=== PATIENT | female | born 1945 | race Caucasian/White ===

== ENCOUNTER → 2019-12-18 09:15 | Outpatient (REF) | payer MEDICARE, SELFPAY ==
--- NOTE | 2019-12-18 09:30 | CA_ITS ---
Transthoracic Echocardiogram Patient (Last, First, Middle): Cecilia Lin D Gender: Female Date of : 1945 Age: 74 Procedure Date: 12/18/2019 Procedure Type: Transthoracic Echocardiogram Location: OP Height: 162.56 cm Weight: 86.18 kg BSA: 1.91 m2 Heart Rate: bpm BP: 126 / 78 mmHg Clinical Project Leader: NIELS Referring MD: Magui QUIGLEY Anodizer: Anil Maya MD Symptoms: R60.0 EDEMA LOWER EXTEMITY Study Quality: Fair ECG Rhythm: Sinus Conclusions: - 1. Normal LV systolic function with pseudonormal filling pattern 2. Mildly dilated left atrium 3. Normal cardiac valvular Doppler 4. Normal RV systolic pressure 5. No pericardial effusion Findings Left Ventricle Normal left ventricular size, thickness, and systolic function. The visually estimated ejection fraction is between 60-65%. Spectral Doppler is indicative of a pseudonormal filling pattern. E/E prime ratio is between 8 and 15 consistent with indeterminate filling pressures. Right Ventricle Mildly increased right ventricular cavity size. There is normal right ventricular systolic function. Atria The left atrium is mildly dilated. There is lipomatous hypertrophy of the interatrial septum. There is no evidence of interatrial shunt. The right atrium is normal in size. Aortic Valve Normal aortic valve structure and function. There is no aortic valve stenosis. There is no aortic valve regurgitation. Mitral Valve Normal mitral valve structure and function. There is trace mitral valve regurgitation. There is no mitral valve stenosis. Pulmonic Valve The pulmonic valve is likely normal. There is trace pulmonic valve regurgitation. Tricuspid Valve Normal tricuspid valve structure. There is trace tricuspid valve regurgitation. The right ventricular systolic pressure is normal. The right ventricular systolic pressure is 25 mmHg. There is no evidence of pulmonary hypertension. Great Vessels All visible segments of the aorta are normal in size. The pulmonary artery was not well visualized. Venous The inferior vena cava is normal in size and collapses greater than 50% with inspiration. Pericardium/Pleural There is no evidence of pericardial effusion. Prior Study Comparison No prior study available for comparison. Measurements 2D Linear Measurements IVSd: 1.06 0.6-0.9/0.6-1.0 cm LVIDd: 4.82 3.9-5.3/4.2-5.9 cm LVIDd Index: 2.52 2.4-3.2/2.2-3.1 cm/m2 LVIDs: 2.87 2.0-3.6 cm LVPWd: 1.06 0.7-1.1 cm Ao Root: 2.60 2.1-3.5 cm LA Diam: 3.60 2.7-3.8/3.0-4.0 cm LAIDs Index: 1.88 1.5-2.3 cm/m2 LV Mass: 231.17 67-162/88-224 g LV Mass Index: 121.03 43-95/49-115 g/m2 LVOT Diam: 2.10 3.0+(-)1.3 cm Mitral Valve MV Pk E: 1.07 MV PK A: 0.87 MV Decel Time: 187.00 E/A: 1.20 E'Lateral: 10.50 E'Medial: 7.06 E/E' Med: 15.20 E/E' Lat: 10.20 PHT: 55.00 MVA PHT: 4.00 Decel [place]: 5.72 Aortic Valve AoV Pk Con: 1.32 AoV Mn Con: 0.90 AoV VTI: 0.34 AoV Pk Grad: 7.00 Aov Mn Grad: 4.00 VICENTE Cont.VTI: 2.38 LVOT LVOT Pk Con: 0.99 LVOT Mn Con: 0.66 LVOT VTI: 0.24 LVOT Pk Grad: 4.00 LVOT Mn Grad: 2.00 LVOT Diam: 2.10 LVOT Area: 3.46 Diastolic Function MV Pk E: 1.07 MV Pk A: 0.87 E/A: 1.20 E'Medial: 7.06 E/E' Med: 15.20 E' Laterial: 10.50 E/E' Lat: 10.20 Tricuspid Valve TR Pk Con: 2.36 TR Pk Grad: 22.00 RA Press: 3.00 RVSP: 25.00 Great Vessels Aorta Ao Root-2D: 2.60 2.0-3.7 cm Ao Asc: 3.10 2.1-3.4 cm Pulmonary Valve PV Pk Con: 0.91 Peak PV Grad: 3.00 Updated in Other Vendor System with Status of Final Anil Maya MD electronically signed on 12/19/2019 1:22:35 PM with status of Final
== END ==
LOC: HO.CARD 09:15
PROVIDERS: PCP Internal Medicine; Visit Provider Physician Assistant
DX: R60.0 Localized edema (principal)
CPT/HCPCS: 93306

== ENCOUNTER 2019-12-20 08:00 | Outpatient (REF) | payer MEDICARE, SELFPAY ==
--- NOTE | 2019-12-20 | US_ITS ---
EXAMINATION: US VENOUS ULTRASOUND WITH DOPPLER LOWER EXTREMITY, BILATERAL CLINICAL INFORMATION: Edema COMPARISON: Venous examination February 2006 TECHNIQUE: Ultrasound of the deep veins is performed from the hip to the calf with compression sonography and color and pulse Doppler assessment. Spectral analysis with color-flow imaging is performed. FINDINGS: RIGHT: There is normal venous compression and respiratory variation and augmented flow. The visualized common femoral vein, superficial femoral vein, profunda femoral vein, popliteal vein, and the trifurcation region shows no evidence of deep venous thrombosis. There is no significant popliteal fossa cyst. LEFT: There is normal venous compression and respiratory variation and augmented flow. The visualized common femoral vein, superficial femoral vein, profunda femoral vein, popliteal vein, and the trifurcation region shows no evidence of deep venous thrombosis. There is no significant popliteal fossa cyst. If the patient's symptoms persist, followup ultrasound in 5 days 7 days might be of value to exclude proximal propagation from a non-visualized calf vein. US/US venous duplex LE BI IMPRESSION: No DVT demonstrated in the right and left lower extremity.
== END 2019-12-20 08:01 | disposition home or self-care (01) ==
LOC: HO.US 08:00
PROVIDERS: PCP Internal Medicine; Visit Provider Physician Assistant
DX: R60.0 Localized edema (principal)
CPT/HCPCS: 93970

== ENCOUNTER 2020-01-22 08:02 | Outpatient (REF) | payer MEDICARE, SELFPAY ==
[2020-01-22 11:13] LABS: MANUAL DIFF FLAG NO
[2020-01-22 11:20] LABS: Basophils Absolute Auto 0.1 X10*3/uL (0.0-0.2); Eosinophils Absolute Auto 0.2 X10*3/uL (0.0-0.4); Eosinophils Percent Auto 3.4 % (0-4); Hematocrit 37.3 % (37-47); Hemoglobin 12.5 g/dl (12.0-16.0); Imm Gran Abs Auto 0.01 X10*3/uL (0.00-0.03); Imm Gran Pct Auto 0.2 % (0.0-0.4); Lymphocytes Absolute Auto 2.3 X10*3/uL (1.2-4.9); Lymphocytes Percent Auto 45.5 % (20-40); Mean Corpuscular HGB Conc 33.5 g/dl (31.0-35.0); Mean Corpuscular Hemoglobin 30.1 pg (27.0-33.0); Mean Corpuscular Volume 89.9 fL (80-98); Mean Platelet Volume 10.7 fL (9.4-12.3); Monocytes Absolute Auto 0.4 X10*3/uL (0.1-1.2); Neutrophils Absolute Auto 2.1 X10*3/uL (2.0-8.3); Neutrophils Percent Auto 41.9 % (45-73); Platelet Count 259 X10*3/uL (160-400); Red Blood Count 4.15 X10*6/uL (4.20-5.50); Red Cell Distribution Width 13.2 % (11.0-16.0)
[2020-01-22 11:44] LABS: Alanine Aminotransferase 14 U/L (0-31); Alkaline Phosphatase 74 U/L (39-117); Anion Gap 10 (12-20); Aspartate Amino Transferase 17 U/L (5-31); Bilirubin Total 0.4 mg/dL (0.0-1.0); Blood Urea Nitrogen 24 mg/dL (9-16); Calcium 8.8 mg/dL (8.4-10.2); Carbon Dioxide 30 mmol/L (22-29); Chloride 106 mmol/L (96-108); Cholesterol 215 mg/dL; Estimated Glomerular Filt Rate > 60; Glucose Fasting 80 mg/dL (60-99); HDL Cholesterol 65 mg/dL; LDL Cholesterol Calculated 127 mg/dl; Potassium 4.4 mmol/l (3.3-5.1); Sodium 142 mmol/L (135-145); Total Protein 6.5 g/dL (6.5-8.0); Triglycerides 118 mg/dL
== END 2020-01-22 08:03 | disposition home or self-care (01) ==
LOC: HO.HMGCLDS 08:02
PROVIDERS: PCP Internal Medicine; Visit Provider Physician Assistant
DX: Z13.6 Encounter for screening for cardiovascular disorders (principal); Z00.00 Encounter for general adult medical examination without abnormal findings
CPT/HCPCS: 36415; 80053; 80061; 85025

== ENCOUNTER → 2020-02-25 10:43 | Outpatient (REF) | payer MEDICARE, SELFPAY ==
--- NOTE | 2020-02-25 10:54 | HM_ITS ---
TEST PERFORMED: Cardiac event monitoring. REQUESTING PHYSICIAN: DANN Izquierdo. ENROLLMENT PERIOD: 02/25/2020 to 03/26/2020. FINDINGS: Underlying rhythm was sinus rhythm. There was no evidence of any tachyarrhythmia or bradyarrhythmia noted during the time. Of note, even though this was a 30-day monitor, the patient actually had this only for about 5 days or so. It was removed because of allergic reaction. CONCLUSION: Unremarkable cardiac event monitor. Originally scheduled for 30 days, but worn only for 5 days due to allergic reaction. Zev Houston MD HS/MODL / [id number] MTDD
== END ==
LOC: HO.CARD 10:43
PROVIDERS: Visit Provider Physician Assistant
DX: R00.2 Palpitations (principal)
CPT/HCPCS: 93270

== ENCOUNTER → 2020-04-16 10:09 | Outpatient (BNVA) | payer MEDICARE, SELFPAY | PROVIDERS: PCP Internal Medicine; Visit Provider Internal Medicine Gastroenterology | DX: K22.10 Ulcer of esophagus without bleeding (principal); Z12.11 Encounter for screening for malignant neoplasm of colon | CPT/HCPCS: Q3014 ==

== ENCOUNTER 2020-05-10 10:30 | Outpatient (REF) | payer MEDICARE, SELFPAY ==
--- NOTE | ~2020-05-10 | MM_ITS ---
EXAMINATION: MM SCREENING DIGITAL BREAST TOMOSYNTHESIS, BILATERAL CLINICAL INFORMATION: Screening. Asymptomatic. The lifetime risk of breast cancer based on the Tyrer-Cuzick Model is 2%. COMPARISON: Mammography: 03/02/2019, 01/20/2018, 12/28/2016, 12/15/2015 TECHNIQUE: Digital breast tomosynthesis is performed in both the craniocaudal and mediolateral oblique views along with computer-aided detection (CAD). Synthesized 2D images are generated from the tomosynthesis. Additional right MLO view is provided. FINDINGS: There are scattered areas of fibroglandular density (ACR BI-RADS breast composition Category b). There are no significant masses, abnormal calcifications, or other abnormalities. There are some chronic stable punctate calcifications possibly dermal overlying nipples and areola. The axilla are unremarkable. There are no significant changes from prior studies. MM/MM tomosynthesis screening BI IMPRESSION: No mammographic evidence of malignancy. ASSESSMENT: BI-RADS 2: Benign RECOMMENDATION: Routine annual mammography screening. This patient's information was entered into a reminder system with a target due date for their next mammogram.
== END 2020-05-10 10:31 | disposition home or self-care (01) ==
LOC: HO.MAMMO 10:30
PROVIDERS: Visit Provider Internal Medicine
DX: Z12.31 Encounter for screening mammogram for malignant neoplasm of breast (principal)
CPT/HCPCS: 77063; 77067

== ENCOUNTER 2021-05-11 11:04 | Outpatient (REF) | payer MEDICARE, SELFPAY ==
--- NOTE | ~2021-05-11 | MM_ITS ---
EXAMINATION: MM SCREENING DIGITAL BREAST TOMOSYNTHESIS, BILATERAL CLINICAL INFORMATION: Screening. Asymptomatic. The lifetime risk of breast cancer based on the Tyrer-Cuzick Model is 2%. COMPARISON: Mammography: 05/10/2020, 03/02/2019, 01/20/2018 TECHNIQUE: Digital breast tomosynthesis is performed in both the craniocaudal and mediolateral oblique views along with computer-aided detection (CAD). Synthesized 2D images are generated from the tomosynthesis. FINDINGS: There are scattered areas of fibroglandular density (ACR BI-RADS breast composition Category b). There are no significant masses, abnormal calcifications, or other abnormalities. Background stromal markings are stable. There are punctate calcifications again seen overlying both nipples similar to prior studies. The axilla are unremarkable. MM/MM tomosynthesis screening BI IMPRESSION: No mammographic evidence of malignancy. ASSESSMENT: BI-RADS 2: Benign RECOMMENDATION: Routine annual mammography screening. This patient's information was entered into a reminder system with a target due date for their next mammogram.
== END 2021-05-11 11:05 | disposition home or self-care (01) ==
LOC: HO.MAMMO 11:04
PROVIDERS: Visit Provider Internal Medicine
DX: Z12.31 Encounter for screening mammogram for malignant neoplasm of breast (principal)
CPT/HCPCS: 77063; 77067

== ENCOUNTER 2021-05-20 10:38 | Outpatient (REF) | payer MEDICARE, SELFPAY ==
[2021-05-20 12:44] LABS: MANUAL DIFF FLAG NO
[2021-05-20 12:47] LABS: Basophils Absolute Auto 0.1 X10*3/uL (0.0-0.2); Basophils Percent Auto 1.1 % (0-2); Eosinophils Absolute Auto 0.2 X10*3/uL (0.0-0.4); Eosinophils Percent Auto 3.5 % (0-4); Hematocrit 38.8 % (37.0-47.0); Hemoglobin 12.7 g/dl (12.0-16.0); Imm Gran Abs Auto 0.01 X10*3/uL (0.00-0.03); Imm Gran Pct Auto 0.2 % (0.0-0.4); Lymphocytes Absolute Auto 1.9 X10*3/uL (1.2-4.9); Lymphocytes Percent Auto 42.3 % (20-40); Mean Corpuscular HGB Conc 32.7 g/dl (31.0-35.0); Mean Corpuscular Hemoglobin 29.3 pg (27.0-33.0); Mean Corpuscular Volume 89.6 fL (80.0-98.0); Mean Platelet Volume 10.5 fL (9.4-12.3); Monocytes Absolute Auto 0.4 X10*3/uL (0.1-1.2); Monocytes Percent Auto 8.4 % (2-11); Neutrophils Percent Auto 44.5 % (45-73); Platelet Count 279 X10*3/uL (160-400); Red Blood Count 4.33 X10*6/uL (4.20-5.50); Red Cell Distribution Width 13.5 % (11.0-16.0); White Blood Count 4.5 X10*3/uL (4.8-10.8)
[2021-05-20 13:09] LABS: Alanine Aminotransferase 18 U/L (0-31); Alkaline Phosphatase 64 U/L (39-117); Anion Gap 13 (12-20); Aspartate Amino Transferase 18 U/L (5-31); Bilirubin Direct < 0.2 mg/dL (0.0-0.5); Bilirubin Total 0.3 mg/dL (0.0-1.0); Blood Urea Nitrogen 19 mg/dL (9-16); C Reactive Protein 0.42 mg/dL (< or = 0.50); Calcium 9.9 mg/dL (8.4-10.2); Carbon Dioxide 24 mmol/L (22-29); Chloride 106 mmol/L (96-108); Estimated Glomerular Filt Rate > 60; Glucose Random 92 mg/dL (60-115); Iron 81 mcg/dL (30-160); Lipase 33 U/L (8-78); Potassium 4.9 mmol/L (3.3-5.1); Sodium 138 mmol/L (135-145); Total Protein 6.5 g/dL (6.5-8.0)
[2021-05-20 13:26] LABS: Erythrocyte Sedimentation Rate 25 MM/HR (0-20); Ferritin 71 ng/mL (10-250)
[2021-05-20 13:39] LABS: Amylase 62 U/L (28-100); Gamma Glutamyl Transpeptidase 18 U/L (7-33); Percent Iron Saturation 24 % (15-50); Total Iron Binding Capacity 344 mcg/dL (228-428); Unsaturated Iron Binding 263 ug/dL
[2021-05-20 13:57] LABS: Estimated Average Glucose 105 mg/dL; Hemoglobin A1c % 5.3 %
== END 2021-05-20 10:39 | disposition home or self-care (01) ==
LOC: HO.MANLDS 10:38
PROVIDERS: PCP Physician Assistant; Visit Provider Physician Assistant
DX: A07.8 Other specified protozoal intestinal diseases (principal)
CPT/HCPCS: 36415; 80053; 82150; 82248; 82728; 82977; 83036; 83540; 83690; 85025; 85652; 86140

== ENCOUNTER → 2021-08-17 12:59 | Outpatient (BNVA) | payer MEDICARE, SELFPAY | PROVIDERS: PCP Physician Assistant; Referring Provider Physician Assistant; Visit Provider Physician Assistant | DX: K21.9 Gastro-esophageal reflux disease without esophagitis (principal); Z79.899 Other long term (current) drug therapy | CPT/HCPCS: 99212 ==

== ENCOUNTER → 2021-09-11 12:49 | Outpatient (REF) | payer MEDICARE, SELFPAY ==
--- NOTE | 2021-09-11 13:00 | CA_ITS ---
Transthoracic Echocardiogram Patient (Last, First, Middle): Cecilia Lin D Gender: Female Date of : 1945 Age: 76 Procedure Date: 09/11/2021 Procedure Type: Transthoracic Echocardiogram Location: OP Height: 160.02 cm Weight: 88.45 kg BSA: 1.91 m2 Heart Rate: bpm BP: 126 / 78 mmHg [employer]: TO Referring MD: Magui QUIGLEY Symptoms: EDEMA LOWER EXTREMITIES Study Quality: Adequate Conclusions: - 1. Normal LV systolic function with pseudonormal filling pattern with elevated left ventricular end-diastolic pressure 2. Mildly dilated left atrium 3. Normal RV systolic pressure 4. Normal cardiac valvular Doppler next 5. No pericardial effusion Findings Left Ventricle Normal left ventricular size, thickness, and systolic function. The visually estimated ejection fraction is between 55-60%. Spectral Doppler is indicative of a pseudonormal filling pattern. Elevated left ventricular end diastolic pressure. E/E prime ratio is between 8 and 15 consistent with indeterminate filling pressures. Right Ventricle Normal right ventricular cavity size and systolic function. Atria The left atrium is likely dilated. There is no evidence of interatrial shunt. The right atrium is normal in size. Aortic Valve Normal aortic valve structure and function. There is no aortic valve stenosis. There is no aortic valve regurgitation. Mitral Valve There is mild anterior and posterior mitral leaflet thickening. There is trace mitral valve regurgitation. There is no mitral valve stenosis. Pulmonic Valve The pulmonic valve is likely normal. Tricuspid Valve Normal tricuspid valve structure. There is mild tricuspid valve regurgitation. The right ventricular systolic pressure is normal. The right ventricular systolic pressure is 28 mmHg. Normal right atrial pressure. There is no evidence of pulmonary hypertension. Great Vessels All visible segments of the aorta are normal in size. The pulmonary artery was not well visualized. Venous The inferior vena cava is normal in size and collapses greater than 50% with inspiration. Pericardium/Pleural There is no evidence of pericardial effusion. Prior Study Comparison No significant change compared to prior study dated: 12/18/2019. Measurements 2D Linear Measurements IVSd: 0.86 0.6-0.9/0.6-1.0 cm LVIDd: 4.37 3.9-5.3/4.2-5.9 cm LVIDd Index: 2.29 2.4-3.2/2.2-3.1 cm/m2 LVIDs: 3.08 2.0-3.6 cm LVPWd: 0.90 0.7-1.1 cm LA Diam: 3.30 2.7-3.8/3.0-4.0 cm LAIDs Index: 1.73 1.5-2.3 cm/m2 LV Mass: 153.00 67-162/88-224 g LV Mass Index: 80.11 43-95/49-115 g/m2 LVOT Diam: 2.00 3.0+(-)1.3 cm 2D Systolic Function EF 4C: 55.00 >55% EF 2C: 57.30 >55% EF BiP: 55.80 >55% Mitral Valve MV Pk E: 0.89 MV PK A: 0.78 MV Decel Time: 205.00 E/A: 1.10 E'Lateral: 12.10 E'Medial: 5.44 E/E' Med: 16.40 E/E' Lat: 7.40 PHT: 60.00 MVA PHT: 3.67 Decel [place]: 4.36 Aortic Valve AoV Pk Con: 1.15 AoV Mn Con: 0.76 AoV VTI: 0.26 AoV Pk Grad: 5.00 Aov Mn Grad: 3.00 VICENTE Cont.VTI: 2.55 LVOT LVOT Pk Con: 0.87 LVOT Mn Con: 0.56 LVOT VTI: 0.21 LVOT Pk Grad: 3.00 LVOT Mn Grad: 1.00 LVOT Diam: 2.00 LVOT Area: 3.14 Diastolic Function MV Pk E: 0.89 MV Pk A: 0.78 E/A: 1.10 E'Medial: 5.44 E/E' Med: 16.40 E' Laterial: 12.10 E/E' Lat: 7.40 Right Ventricle TAPSE (mm): 23.60 TVS' Con: 9.36 Tricuspid Valve TR Pk Con: 2.51 TR Pk Grad: 25.00 RA Press: 3.00 RVSP: 28.00 Great Vessels Aorta Sinus of Valsalva: 2.93 2.0-3.[address] [place]: 2.08 1.7-3.4 cm Ao Asc: 3.00 2.1-3.4 cm Ao Arch: 2.60 Updated in Other Vendor System with Status of Final Anil Maya MD electronically signed on 09/12/2021 12:56:26 PM with status of Final
== END ==
LOC: HO.CARD 12:49
PROVIDERS: PCP Internal Medicine; Visit Provider Physician Assistant
DX: R60.0 Localized edema (principal)
CPT/HCPCS: 93306

== ENCOUNTER 2021-11-20 10:48 | Outpatient (REF) | payer MEDICARE, SELFPAY ==
[2021-11-20 14:01] LABS: MANUAL DIFF FLAG NO
[2021-11-20 14:04] LABS: Basophils Absolute Auto 0.1 X10*3/uL (0.0-0.2); Eosinophils Absolute Auto 0.2 X10*3/uL (0.0-0.4); Eosinophils Percent Auto 3.4 % (0-4); Hematocrit 35.2 % (37.0-47.0); Hemoglobin 11.9 g/dl (12.0-16.0); Imm Gran Abs Auto 0.02 X10*3/uL (0.00-0.03); Imm Gran Pct Auto 0.3 % (0.0-0.4); Lymphocytes Absolute Auto 2.1 X10*3/uL (1.2-4.9); Lymphocytes Percent Auto 33.1 % (20-40); Mean Corpuscular HGB Conc 33.8 g/dl (31.0-35.0); Mean Corpuscular Hemoglobin 31.1 pg (27.0-33.0); Mean Corpuscular Volume 91.9 fL (80.0-98.0); Mean Platelet Volume 10.4 fL (9.4-12.3); Monocytes Absolute Auto 0.5 X10*3/uL (0.1-1.2); Monocytes Percent Auto 7.5 % (2-11); Neutrophils Absolute Auto 3.4 x10*3/uL (2.0-8.3); Neutrophils Percent Auto 54.7 % (45-73); Platelet Count 297 X10*3/uL (160-400); Red Blood Count 3.83 X10*6/uL (4.20-5.50); Red Cell Distribution Width 13.2 % (11.0-16.0); White Blood Count 6.3 X10*3/uL (4.8-10.8)
[2021-11-20 14:26] LABS: Alanine Aminotransferase 21 U/L (0-31); Albumin Level 4.2 g/dL (3.5-5.0); Alkaline Phosphatase 63 U/L (39-117); Anion Gap 17 (12-20); Aspartate Amino Transferase 23 U/L (5-31); Bilirubin Total 0.2 mg/dL (0.0-1.0); Blood Urea Nitrogen 29 mg/dL (9-16); C Reactive Protein 0.59 mg/dL (< or = 0.50); Calcium 9.6 mg/dL (8.4-10.2); Carbon Dioxide 27 mmol/L (22-29); Chloride 105 mmol/L (96-108); Estimated Glomerular Filt Rate 60; Glucose Random 89 mg/dL (60-115); Potassium 4.9 mmol/L (3.3-5.1); Sodium 144 mmol/L (135-145); Total Protein 6.7 g/dL (6.5-8.0)
[2021-11-20 14:58] LABS: Erythrocyte Sedimentation Rate 36 MM/HR (0-20)
== END 2021-11-20 10:49 | disposition home or self-care (01) ==
LOC: HO.MANLDS 10:48
PROVIDERS: Visit Provider Physician Assistant
DX: K52.9 Noninfective gastroenteritis and colitis, unspecified (principal)
CPT/HCPCS: 36415; 80053; 85025; 85652; 86140

== ENCOUNTER 2021-11-26 11:23 | Outpatient (REF) | payer MEDICARE, SELFPAY ==
[2021-11-26 14:17] LABS: Iron 99 mcg/dL (30-160); Percent Iron Saturation 28 % (15-50); Total Iron Binding Capacity 353 mcg/dL (228-428); Unsaturated Iron Binding 254 ug/dL
[2021-11-26 14:27] LABS: Ferritin 58 ng/mL (10-250)
== END 2021-11-26 11:24 | disposition home or self-care (01) ==
LOC: HO.HMGCLDS 11:23
PROVIDERS: PCP Internal Medicine; Visit Provider Physician Assistant
DX: D64.9 Anemia, unspecified (principal)
CPT/HCPCS: 36415; 82728; 83540

== ENCOUNTER 2022-05-17 10:49 | Outpatient (REF) | payer MEDICARE, SELFPAY ==
--- NOTE | ~2022-05-17 | MM_ITS ---
EXAMINATION: MM SCREENING DIGITAL BREAST TOMOSYNTHESIS, BILATERAL CLINICAL INFORMATION: Screening. Asymptomatic. The lifetime risk of breast cancer based on the Tyrer-Cuzick Model is 2%. COMPARISON: Mammography: 05/11/2021, 05/10/2020, 03/02/2019, 01/20/2018 TECHNIQUE: Digital breast tomosynthesis is performed in both the craniocaudal and mediolateral oblique views along with computer-aided detection (CAD). Synthesized 2D images are generated from the tomosynthesis. FINDINGS: There are scattered areas of fibroglandular density (ACR BI-RADS breast composition Category b). No architectural abnormality or developing density or significant change from prior studies. Again, there are some fine calcifications overlying both nipples as well as some vascular calcifications. The axilla are unremarkable. There are no significant masses, abnormal calcifications, or other abnormalities. MM/MM tomosynthesis screening BI IMPRESSION: No mammographic evidence of malignancy. ASSESSMENT: BI-RADS 2: Benign RECOMMENDATION: Routine annual mammography screening. This patient's information was entered into a reminder system with a target due date for their next mammogram.
== END 2022-05-17 10:50 | disposition home or self-care (01) ==
LOC: HO.MAMMO 10:49
PROVIDERS: Visit Provider Internal Medicine
DX: Z12.31 Encounter for screening mammogram for malignant neoplasm of breast (principal)
CPT/HCPCS: 77063; 77067

== ENCOUNTER 2022-08-26 21:28 | Emergency (ER) | payer MEDICARE, SELFPAY ==
--- NOTE | 2022-08-26 21:45 | ED_ITS ---
HPI - General Adult General Chief complaint: Weakness Stated complaint: NAUSEA SWEATING WEAKNESS SHAKING Time Seen by Provider: 08/26/22 21:42 Source: patient Mode of arrival: EMS Limitations: no limitations History of Present Illness HPI narrative: Patient is stable with mild hypertension on metoprolol 50 mg a day no known cardiac history was apparently doing okay all day doing laundry all of a sudden became weak nauseated and diaphoretic no chest pain no palpitation no shortness of breath patient had enough fluids today patient had similar episode in the past when she over exerted but never had diaphoresis Related Data Home Medications Medication Instructions Recorded Confirmed metoprolol succinate 50 mg 50 mg PO DAILY 04/16/20 04/16/20 tablet,extended release 24 hr sertraline 100 mg tablet (Zoloft) 100 mg PO DAILY 04/16/20 04/16/20 Previous Rx's Medication Instructions Recorded famotidine 20 mg tablet 20 mg PO BID #180 tabs 04/06/22 Allergies Allergy/AdvReac Type Severity Reaction Status Date / Time No Known Allergies Allergy Verified 04/16/20 10:10 Review of Systems Review of Systems: Yes all other systems are reviewed and are negative PMFSH Past Medical History Medical History Anal fissure Anxiety Depression Erosive esophagitis HTN (hypertension) Kidney stone Screening for colon cancer Surgical History H/O colonoscopy H/O hemorrhoidectomy History of esophagogastroduodenoscopy (EGD) Family History Family History Mother HTN (hypertension) A-fib Brother HTN (hypertension) Sister HTN (hypertension) Social History Social History Household Members: Children Alcohol intake: never Smoked in Last 30 Days: No Use of substances other than those prescribed or required for medical reasons: No Advance Directives: No Advance Directives Information Provided: Yes Physical Exam ED Vital Signs: Vital Signs - 24 hr 08/26/22 21:49 08/26/22 21:52 08/26/22 22:13 Temperature 98.4 F 98.4 F 98.2 F Pulse Rate 69 69 68 Respiratory Rate 18 18 18 Blood Pressure 121/51 L 121/51 L 114/56 L Pulse Oximetry 100 100 99 Oxygen Delivery Method Room Air Room Air Room Air 08/27/22 00:15 08/27/22 00:22 08/27/22 00:19 Temperature 97.7 F Pulse Rate 66 68 67 Respiratory Rate 15 Blood Pressure 110/50 L 121/58 L 121/64 Pulse Oximetry 98 Oxygen Delivery Method Room Air 08/27/22 00:20 Temperature Pulse Rate 71 Respiratory Rate Blood Pressure 131/62 Pulse Oximetry Oxygen Delivery Method BMI result Body Mass Index 30.9 Appearance: Alert. Oriented X3. No acute distress. Eyes: No pallor no icterus ENT: Pharynx normal. Oral Mucosa moist Neck: Normal inspection. Neck supple. CVS: Normal heart rate and rhythm. Pulses normal. No murmur/rub or gallop Respiratory: No respiratory distress. Equal air entry bilateral, no wheezing/rales/rhonchi Abdomen: Soft and nontender. Bowel sounds are present, no mass palpable, no CVA tenderness Skin: Skin warm and dry. Normal skin color. Normal skin turgor. Extremities: No lower extremity edema. No calf tenderness Neuro: Oriented X 3. No motor deficit. No sensory deficit.No cerebellar signs , cranial nerves II-XII intact Medications Administered Discontinued Medications Generic Name Dose Route Start Last Admin Trade Name Freq PRN Reason Stop Dose Admin Sodium Chloride 1,000 mls @ 999 mls/hr 08/26/22 22:00 08/26/22 23:30 Ns IV 08/26/22 23:00 Infused .Q1H1M ONE Infusion Medical Decision Making Medical Decision Making [facility] Narrative: Patient likely had near-syncope episode while standing patient was outside watering her plants in heat workup negative for any acute coronary syndrome normal orthostatics patient improved after normal saline feeling much better will discharge home advised to follow-up with PCP Differential Diagnosis ACS/cardiac arrhythmias/vasovagal/heat exhaustion Lab Data [facility] Lab Attestation statement: I reviewed the patient's lab results. 08/26/22 22:29 08/26/22 22:29 Labs: Lab Results 08/26/22 08/26/22 08/26/22 Range/Units 22:29 22:29 22:29 WBC 11.6 H (4.8-10.8) X10*3/uL RBC 4.17 L (4.20-5.50) X10*6/uL Hgb 12.8 (12.0-16.0) g/dl Hct 38.4 (37.0-47.0) % MCV 92.1 (80.0-98.0) fL MCH 30.7 (27.0-33.0) pg MCHC 33.3 (31.0-35.0) g/dl RDW 12.7 (11.0-16.0) % Plt Count 294 (160-400) X10*3/uL MPV 9.9 (9.4-12.3) fL Immature Gran % (Auto) 0.3 (0.0-0.4) % Neut % (Auto) 77.0 H (45-73) % Lymph % (Auto) 14.5 L (20-40) % [place] % (Auto) 6.8 (2-11) % Eos % (Auto) 1.0 (0-4) % Baso % (Auto) 0.4 (0-2) % Lymph # (Auto) 1.7 (1.2-4.9) X10*3/uL [place] # (Auto) 0.8 (0.1-1.2) X10*3/uL Eos # (Auto) 0.1 (0.0-0.4) X10*3/uL Baso # (Auto) 0.1 (0.0-0.2) X10*3/uL Abs Immat Gran (auto) 0.03 (0.00-0.03) X10*3/uL Absolute Neuts (auto) 8.9 H (2.0-8.3) x10*3/uL Absolute Nucleated RBC 0.000 (0.0-0.012) X10*3/uL Nucleated RBC % (auto) 0.0 (0.0-0.2) /100WBC Sodium 139 (135-145) mmol/L Potassium 3.8 D (3.3-5.1) mmol/L Chloride 101 (96-108) mmol/L Carbon Dioxide 24 (22-29) mmol/L Anion Gap 18 (12-20) BUN 25 H (9-16) mg/dL Creatinine 0.89 (0.5-1.4) mg/dL Estim Creat Clear Calc 53.8 Estimated GFR > 60 Random Glucose 128 H (60-115) mg/dL Calcium 9.9 (8.4-10.2) mg/dL Magnesium 2.3 (1.6-2.6) mg/dL Total Bilirubin 0.2 (0.0-1.0) mg/dL AST 31 (5-31) U/L ALT 28 (0-31) U/L Alkaline Phosphatase 94 (39-117) U/L Troponin I High Sens < 2.7 (<3.5-17.0) ng/L Total Protein 7.2 (6.5-8.0) g/dL Albumin 4.1 (3.5-5.0) g/dL Independent Interpretation I performed an independent interpretation of an: EKG Interpretation: Normal sinus rhythm heart rate 66 beats per minute normal interval normal axis no acute ST-T changes no acute ischemia Discharge Plan Discharge Clinical Impression: Vasovagal near syncope, Heat exhaustion Patient Disposition: Home, Self-Care Instructions: Heat Exhaustion (ED), Near Syncope (ED) Additional Instructions: Drink plenty of fluids Likely you had vasovagal attack with heat exhaustion Follow-up with your PCP if symptoms continues or recurs Prescriptions: No Action famotidine 20 mg tablet 20 mg PO BID Qty: 180 0RF metoprolol succinate 50 mg tablet extended release 24 hr 50 mg PO DAILY sertraline [Zoloft] 100 mg tablet 100 mg PO DAILY
[2022-08-26 21:46] VITALS: BP 124/86; PULSE 80; O2SAT 98
[2022-08-26 21:49] VITALS: BP 121/51; PULSE 69; RESP 18; TEMP 36.9; O2SAT 100; BMI 30.9
[2022-08-26 21:52] VITALS: BP 121/51; PULSE 69; RESP 18; TEMP 36.9; O2SAT 100
--- NOTE | 2022-08-26 22:00 | ECG_ITS ---
Test Reason : DIZZY Blood Pressure : / mmHG Vent. Rate : 066 BPM Atrial Rate : 066 BPM P-R Int : 156 ms QRS Dur : 106 ms QT Int : 404 ms P-R-T Axes : 042 009 017 degrees QTc Int : 423 ms Normal sinus rhythm Incomplete right bundle branch block Borderline ECG When compared with ECG of 21-JUL-2009 12:33, No significant change was found Referred By: Cody Pritchett Electronically Signed By:Panfilo Vail
--- NOTE | 2022-08-26 22:05 | MHC.EDTECH ---
PATIENT CAME VIA EMS , EKG TAKEN AND WAS READ BY PROVIDER ,PATIENT WAS HOOKED UP TO PSYCHOLOGICAL AIDE ,VITALS SIGN TAKEN AND PATIENT WAS CHANGE INTO HOSPITAL ATTIRE ,RN AT BEDSIDE PUTTING IN IV AND GETTING BLOOD WORK ,PATIENT SON AT BEDSIDE ,PT IN GREAT SPRITS WATCHING GAME SHOW .
[2022-08-26 22:13] VITALS: BP 114/56; PULSE 68; RESP 18; TEMP 36.8; O2SAT 99
[2022-08-26] MEDS: 0.9 % Sodium Chloride 1,000 ML 999 ML IV (22:28)
[2022-08-26 22:33] LABS: MANUAL DIFF FLAG NO
[2022-08-26 22:40] LABS: Basophils Absolute Auto 0.1 X10*3/uL (0.0-0.2); Basophils Percent Auto 0.4 % (0-2); Eosinophils Absolute Auto 0.1 X10*3/uL (0.0-0.4); Hematocrit 38.4 % (37.0-47.0); Hemoglobin 12.8 g/dl (12.0-16.0); Imm Gran Abs Auto 0.03 X10*3/uL (0.00-0.03); Imm Gran Pct Auto 0.3 % (0.0-0.4); Lymphocytes Absolute Auto 1.7 X10*3/uL (1.2-4.9); Lymphocytes Percent Auto 14.5 % (20-40); Mean Corpuscular HGB Conc 33.3 g/dl (31.0-35.0); Mean Corpuscular Hemoglobin 30.7 pg (27.0-33.0); Mean Corpuscular Volume 92.1 fL (80.0-98.0); Mean Platelet Volume 9.9 fL (9.4-12.3); Monocytes Absolute Auto 0.8 X10*3/uL (0.1-1.2); Monocytes Percent Auto 6.8 % (2-11); Neutrophils Absolute Auto 8.9 x10*3/uL (2.0-8.3); Platelet Count 294 X10*3/uL (160-400); Red Blood Count 4.17 X10*6/uL (4.20-5.50); Red Cell Distribution Width 12.7 % (11.0-16.0); White Blood Count 11.6 X10*3/uL (4.8-10.8)
[2022-08-26 22:52] LABS: Alanine Aminotransferase 28 U/L (0-31); Albumin Level 4.1 g/dL (3.5-5.0); Alkaline Phosphatase 94 U/L (39-117); Anion Gap 18 (12-20); Aspartate Amino Transferase 31 U/L (5-31); Bilirubin Total 0.2 mg/dL (0.0-1.0); Blood Urea Nitrogen 25 mg/dL (9-16); Calcium 9.9 mg/dL (8.4-10.2); Carbon Dioxide 24 mmol/L (22-29); Chloride 101 mmol/L (96-108); Creatinine Clr Calc Pharmacy 53.8; Estimated Glomerular Filt Rate > 60; Glucose Random 128 mg/dL (60-115); Magnesium 2.3 mg/dL (1.6-2.6); Potassium 3.8 mmol/L (3.3-5.1); Sodium 139 mmol/L (135-145); Total Protein 7.2 g/dL (6.5-8.0)
[2022-08-26 23:05] LABS: Troponin-I High Sensitivity < 2.7 ng/L (<3.5-17.0)
[2022-08-27 00:15] VITALS: BP 110/50; PULSE 66
[2022-08-27 00:19] VITALS: BP 121/64; PULSE 67
[2022-08-27 00:20] VITALS: BP 131/62; PULSE 71
[2022-08-27 00:22] VITALS: BP 121/58; PULSE 68; RESP 15; TEMP 36.5; O2SAT 98
== END 2022-08-27 00:36 | disposition home or self-care (01) ==
PROVIDERS: Emergency Provider Internal Medicine
DX: R55 Syncope and collapse (principal); T67.5XXA Heat exhaustion, unspecified, initial encounter; X58.XXXA Exposure to other specified factors, initial encounter; Y93.9 Activity, unspecified; Y92.9 Unspecified place or not applicable; Y99.9 Unspecified external cause status; I10 Essential (primary) hypertension; Z79.899 Other long term (current) drug therapy
CPT/HCPCS: 36415; 80053; 83735; 84484; 85025; 93005; 96360; 99284; 99285

== ENCOUNTER → 2022-08-26 22:00 | Outpatient (BNV) | payer MEDICARE, SELFPAY | PROVIDERS: Emergency Provider Internal Medicine; Visit Provider Internal Medicine Cardiovascular Disease | DX: I45.10 Unspecified right bundle-branch block (principal); R42 Dizziness and giddiness | CPT/HCPCS: 93010 ==

== ENCOUNTER 2023-05-27 11:00 | Outpatient (REF) | payer MEDICARE, SELFPAY | END 2023-05-27 11:01 | disposition home or self-care (01) | LOC: HO.MAMMO 11:00 | PROVIDERS: PCP Internal Medicine; Visit Provider Internal Medicine | DX: Z12.31 Encounter for screening mammogram for malignant neoplasm of breast (principal) | CPT/HCPCS: 77063; 77067 ==

== ENCOUNTER → 2023-05-27 11:00 | Outpatient (BNV) | payer MEDICARE, SELFPAY | PROVIDERS: PCP Internal Medicine; Visit Provider Radiology Diagnostic Radiology | DX: Z12.31 Encounter for screening mammogram for malignant neoplasm of breast (principal) | CPT/HCPCS: 77063; 77067 ==

== ENCOUNTER 2023-06-14 10:59 | Outpatient (REF) | payer MEDICARE, SELFPAY ==
--- NOTE | ~2023-06-14 | MM_ITS ---
EXAMINATION: BONE DENSITOMETRY CLINICAL INDICATION: Age-related osteoporosis without current pathological fracture. COMPARISON: Previous BD dated 09/15/2017 and baseline BD dated 05/22/2009. TECHNIQUE: Using a [employer] DXA System (software version: 13.1) manufactured by [employer], dual-energy x-ray absorptiometry was performed of the lumbar spine and left hip. The images are of good technical quality. Summary results are attached. FINDINGS: LEFT FEMUR, NECK: Current: BMD 0.771 g/cm2, Z-score -0.4, T-score -1.9, osteopenia. Prior: BMD 0.679 g/cm2. Baseline: BMD 0.805 g/cm2. LEFT FEMUR, TOTAL: Current: BMD 0.846 g/cm2, Z-score 0.0, T-score -1.3, osteopenia, 6.3% increase from previous, 7.2% decrease from baseline (<5% change is not significant). Prior: BMD 0.796 g/cm2. Baseline: BMD 0.912 g/cm2. AP SPINE L1-L4: Current: BMD 1.072 g/cm2, Z-score -0.2, T-score -1.1, osteopenia, 1.7% increase from previous, 4.0% increase from baseline (<5% change is not significant). Prior: BMD 1.054 g/cm2. Baseline: BMD 1.031 g/cm2. IDENTIFIED RISK FACTORS: Menopause, parental hip fracture, height loss, history of fracture (adult), low calcium intake, osteoporosis. HISTORY OF FRACTURE: Shoulder. MEDICATIONS: Calcium supplements or multivitamin, vitamin D. MM/XR DEXA axial skeleton IMPRESSION: 1. DIAGNOSIS: Osteopenia based on the lowest T-score value of -1.9 in the femoral neck applying World Health Organization criteria. 2. 10-YEAR FRACTURE RISK PREDICTION, FRAX: Major osteoporotic fracture (clinical spine, forearm, hip or shoulder) 33.2%. Hip fracture 19.3%. 3. Treatment Recommendations: NOF guidelines recommend consideration for treatment in postmenopausal women and men age 50 and older presenting with the following: -A hip or vertebral (clinical or morphometric) fracture. -T-score less than or equal to -2.5 at the femoral neck or spine after appropriate evaluation to exclude secondary causes. -Low bone mass at the hip or spine and a 10-year fracture probability by FRAX of greater than or equal to 3% for hip fracture or greater than or equal to 20% for major osteoporotic fracture based on the [place] adapted WHO algorithm. 4. Other Recommendations: All treatment decisions require clinical judgment and consideration of individual patient factors, including patient preferences, comorbidities, previous drug use, risk factors not captured in the FRAX model (e.g. frailty, falls, vitamin D deficiency, increased bone turnover, interval significant decline in bone density) and possible under or overestimation of fracture risk by FRAX. Additional medical evaluation for secondary cause of low bone mineral density may be appropriate. FUTURE SCAN RECOMMENDATION: People with diagnosed cases of osteoporosis or at high risk for fracture should have regular bone mineral density tests. For patients eligible for Medicare, routine testing is allowed once every 2 years. The testing frequency can be increased to one year for patients who have rapidly progressing disease, those who are receiving or discontinuing medical therapy to restore bone mass, or have additional risk factors.
== END 2023-06-14 11:00 | disposition home or self-care (01) ==
LOC: HO.MAMMO 10:59
PROVIDERS: PCP Internal Medicine; Visit Provider Physician Assistant
DX: M81.0 Age-related osteoporosis without current pathological fracture (principal)
CPT/HCPCS: 77080

== ENCOUNTER 2024-06-22 13:20 | Outpatient (REF) | payer MEDICARE, SELFPAY ==
--- OUTSIDE RECORDS SUMMARY | 2024-06-22 13:23 | XMS_ITS | Continuity of Care Document ---
Author Organization [facility], CHELLE Arsenio Clinical Address [address] [place] [address] Care Team Providers Care Backside Grinder Name Role Phone JUWAN BURNETTE Primary Care Provider Assessment Encounter Date Assessment Date Assessment LastModified by Organization Details LastModified Time 06/21/2024 06/21/2024 History: Patient is a 78-year-old female presents to me for additional evaluation of bilateral knee pain left greater than right. She has had pain for several years. She said cortisone injections of loss effectiveness. She takes Tylenol and ibuprofen for pain. Pain level is 7/10. She reports limitations of activities including difficulty with stairs and getting out of a chair. He is unable to kneel or squat. She does report a limp. PMH/PSH/MEDS/ALL/F MH/SOC HX/ROS are reviewed in detail per my medical intake sheet. Of note: Reflux, hypertension, kidney stones General Exam: Vital signs are as noted below Mental status: Alert and lucid. Normal insight, affect and grooming. 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 No spasticity or clonus noted. Extremities: Calves are soft nontender, skin intact Orthopedic Examination: Right Knee: Slight valgus alignment. Range of motion 5-115. Severe tenderness and crepitus laterally. Mild instability. Mild effusion. Left Knee: Slight valgus alignment. Range of motion 5-115. Severe tenderness and crepitus laterally. Mild instability. Mild effusion. Antalgic gait pattern favoring the left side. Full strength and sensation distally X-rays: Radiographs ordered and obtained today including a standing AP, Leos view, nonweightbearing lateral views, and merchant view. These radiographs demonstrate end-stage osteoarthrits of the left greater than right knee. There is czrg-xj-vuam articulation, subchondral sclerosis, and osteophyte formation. Assessment: End-stage osteoarthritis of the left greater than right knee which has failed greater than 3 months of nonoperative treatment including medication, activity modification, and injections. The patient is in too much discomfort to participate in any meaningful physical therapy. PLAN: The patient was thoroughly counseled today regarding their knee condition, its natural history and the options, both operative and non-operative. The nature of knee replacement surgery, the potential risks, benefits, and complications, the magnitude of the surgery, the intensity of postoperative recovery as well as its elective nature were explained at length today. Although it is impossible to list all of the possible complications of any operation or procedure, I explained that some of the major complications that may arise include the following: Blood loss requiring transfusion, infection (early or late), blood clots, dislocation, pain (persistent or new), scars numbness or tenderness, unequal leg lengths, weakness, stiffness, loss of motion, clicking of implant, calcification, fracture of bone, instability of leg, nerve damage (paralysis or numbness), blood vessel damage, implant loosening, implant breakage, wearing of the implant, need for future surgery, allergic reaction, metal toxicity, medical complications including confusion, heart attack, stroke, or ). Issues regarding lifelong infection and activity precautions were reviewed. The longevity of the implants was discussed. The patient understands the potential need for revision surgery. We discussed performing the surgery in either an inpatient or outpatient setting as well as the pros and cons of both. The patient has elected to proceed in a inpatient setting. The patient will require clearance from a medical doctor prior to surgery. The patient wishes to schedule an elective total knee replacement little left side only in October. Next planned follow-up is at the history and physical. She is scheduled later this month for her final cortisone injections as well. The patient knows I will be happy to meet with them at any time in order to review any additional questions or concerns that they might have. [email or web address] Not available 06/21/2024 17:36:00 Plan of Treatment Reminders Order Date Submit Date Provider Last Modified By Organization Details Last Modified Time Details Appointments RECHECK 2024 10:15A Carlos Ayers PA-C Not available Not available Not available SURGERY @ [facility] [place] 2024 10:30A M Hakeem Youngblood MD Not available Not available Not available Lab None recorded . Referral None recorded . Procedures None recorded . Surgeries None recorded . Imaging XR, knee, 4 or more view - 6 B KNEE 4V [email or web address] [address], [place], [address], 06/21/2024 16:59:05 Medication Orders None recorded . Patient TargetsNo targets recorded. Patient InstructionsNo instructions recorded. Reason for Referral None Reported. Results Created Date Observation Date Name Description Value Unit Range Abnormal Flag Note LastModifiedBy Organization Detail LastModifiedTime 06/22/1906/21/2024 XR, knee, 4 or more view [email or web address] ?Encry pted=s hAaTro YD8dLq bEUv6g %2BXZw aYqtaq 0bqfl% 2Fg9IQ a4ajBk vP9nXo QUaueC m3YtLR FvZlgJ JJ8mAn HZtai3 2g7531 AC0Kla 3yEVKK uKiQtr MwF INTERFACE [facility] [address], [place], [address], 06/21/2024 14:34:36 06/22/19 25 06/21/2024 XR, knee, 4 or more view [email or web address] ?Encry pted=s hAaTro YD8dLq bEUv6g %2BXZw aYqtaq 0bqfl% 2Fg9IQ a4ajBk vP9nXo QUaueC m3YtLR FvZlgJ JJ8mAn HZtai3 3a9149 AC0Kla 3yEVKK uKiQtr MwF INTERFACE [facility] [address], [place], [address], 06/21/2024 14:34:38 Result Notes None recorded. Problems Name Problem SNOMED Code Status Onset Date Resolution Date Notes Provider Name and Address Organization Details Recorded Time No complaint s 768347298 Active Status: 'I'; Not Available [facility] 4 09:17:11 Bilateral osteoarth ritis of knees 297295761739 107 Active 2023 Michelle Santana PA-C [address], [place], [address] , [facility] 4 12:34:32 Pain of knee region 0783119301 Active 20[facility] 5 14:26:50 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 Procedures Surgical History Date Name Laterality Status Provider Name and Address Organization Details Recorded Time 5 Knee Kenalog 40 1cc Injection, Bilateral completed Larry Ayers PA-C [address], [place], [address], [facility] 03/28/2024 07:40:03 4 Knee Kenalog 40 1cc Injection, Bilateral completed Larry Ayers PA-C [address], [place], [address], [facility] 01/02/2024 07:46:11 4 Knee Kenalog 40 1cc Injection, Bilateral completed Michelle Santana PA-C [address], [place], [address], [facility] 10/03/2023 12:34:48 4 Knee Kenalog 40 1cc Injection, Bilateral completed Larry Ayers PA-C [address], [place], [address], [facility] 06/29/2023 22:30:11 Imaging Results None recorded. Procedure Notes None recorded. Medical Equipment None Reported. Allergies No known drug allergies Medications Name Sig Start Date Stop Date Status Note LastModified by Organization Details LastModified Time fluconazole 150 mg tablet TAKE 1 TABLET BY MOUTH EVERY DAY FOR 10 DAYS 09/27 completed Not Available Not Available Not Available metoprolol succinate ER 50 mg tablet,exte nded release 24 hr TAKE 1 TABLET BY MOUTH EVERY DAY active Not Available Not Available No t Available metoprolol succinate ER 50 mg tablet,exte nded release Take 50 mg every day by oral route. 06/21 completed Not Available Not Available Not Available Claritin 10 mg tablet Take 1 tablet every day by oral route. active Not Available Not Available No t Available sertraline 100 mg tablet TAKE 1 TABLET BY MOUTH DAILY active Not Available Not Available No t Available ketorolac 0.5 % eye drops INSTILL 1 DROP LEFT EYE FOUR TIMES DAILY 09/27 completed Not Available Not Available Not Available neomycin-po lymyxin-dex ameth 3.5 mg/mL-10,00 0 unit/mL-0.1 % eye drops 09/27 completed Not Available Not Available Not Available clotrimazol e-betametha sone 1 %-0.05 % topical cream APPLY TOPICALLY TO THE AFFECTED AND SURROUNDI NG AREAS TWICE DAILY IN THE MORNING AND IN THE EVENING FOR 2 WEEKS 09/27 completed Not Available Not Available Not Available furosemide 20 mg tablet TAKE 1 TABLET BY MOUTH EVERY DAY active Not Available Not Available No t Available fluticasone propionate 50 mcg/actuati on nasal spray,suspe nsion SHAKE LIQUID AND USE 1 SPRAY IN EACH NOSTRIL TWICE DAILY NEEDED active Not Available Not Available No t Available neomycin 3.5 mg/g-polymy chris B 10,000 unit/g-dexa meth 0.1 % eye oint APPLY A SMALL AMOUNT TO EYELID MARGIN TWICE DAILY TO BOTH EYES FOR 7-10 DAYS 09/27 completed Not Available Not Available Not Available Pepcid AC Maximum Strength 20 mg tablet 20 mg twice a day by oral route. active Not Available Not Available No t Available Vitals Date Recorded Body height Body mass index (BMI) Body weight Provider Name and Address Organization Details Last Updated DateTime 06/21/2024 160.02 cm 33.5 kg/m2 33899.96 g JOSETTE BERMEO [place] [facility] 06/21/2024 14:34:28 Social History None recorded. Functional Status None recorded. Mental Status None recorded. Family History Nothing Reported. Medical History Condition Response Arthritis Y Hypertension Y Gynecological HistoryNo gynecological history recorded. Obstetrics History GPAL:G 0 P 0 0 0 0 Past Encounters Encounter ID Performer Location Encounter Start Date Encounter Closed Date Diagnosis/Indication Diagnosis SNOMED-CT Code Diagnosis ICD10 Code Diagnosis Note [id number] MD [facility] [address] [facility] [place] [address] 06/21/2024 13:44:44 06/21/2024 17:36:21 Pain of knee region 4867097837 M25.561 M25.562 G89.29 Bilateral osteoarthritis of knees 8188247615 47762 M17.0 Health Concerns Section Related Observation LastModified by Organization Detai ls LastModified Time None Recorded Concern Status LastModified by Organization Details LastModified Time None Recorded Payers Encounter Date Sequence Insurance Name Policy Number Policy Fitzpatrick Covered Member ID Fitzpatrick Member ID Guarantor Name 06/21/2024 1 [employer] MED[employer]ARE ADVANTAGE PLAN (MEDICARE REPLACEMENT HMO) [id number] Cecilia D D Desilets [id number] Cecilia D Desilets OBGyn Episode No OBEpisode recorded.
--- OUTSIDE RECORDS SUMMARY | 2024-06-22 13:23 | XMS_ITS | Data Portability ---
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 Normal insight, affect and grooming. FRONT DESK PERSON: Gross motor coordination is intact. No spasticity [...] left greater than right knee. There is lyhu-jr-cmsi articulation, subchondral sclerosis, and osteophyte formation. Assessment: [...] available Not available Not available SURGERY @ [facility] 2024 10:30A M Hakeem Youngblood MD Not available Not available Not available Lab None recorded . Referral None recorded . Procedures None recorded . Surgeries None recorded . Imaging XR, knee, 4 or more view - 6 B KNEE 4V 2024 025 [email or web address] [facility] Office, [address], [place], [address], 06/21/2024 16:59:05 Medication Orders None recorded . [...] a4ajBk vP9nXo QUaueC m3YtLR FvZlgJ JJ8mAn HZtai3 6q7381 AC0Kla 3yEVKK uKiQtr MwF INTERFACE [facility] [address], [place], [address], 06/21/2024 14:34:36 06/22/1906/21/2024 XR, knee, 4 or more view http:/ [email or web address]:[email or web address] ?Encry pted=s hAaTro YD8dLq bEUv6g %2BXZw aYqtaq 0bqfl% 2Fg9IQ a4ajBk vP9nXo QUaueC m3YtLR FvZlgJ JJ8mAn HZtai3 4q4559 AC0Kla 3yEVKK uKiQtr MwF INTERFACE [facility] [address], [place], [address], 06/21/2024 14:34:38 Result Notes None recorded. Problems Name Problem SNOMED Code Status Onset Date Resolution Date Notes Provider Name and Address Organization Details Recorded Time No complaint s 498814254 Active Status: 'I'; Not Available [facility] 4 09:17:11 Bilateral osteoarth ritis of knees 862414395643 [address] Santana PA-C [address], [place], [address] , [facility] 4 12:34:32 Pain of knee region 0105567228 Active 2024 JOSETTE borrego, [facility] 5 14:26:50 Derangeme nt of posterior horn of medial meniscus of left knee 089341171961 88480 Active 2015 Problem Code: M23.322; Problem Code Type: ICD-10; Status: 'A'; Not Available [facility] 4 11:28:30 Problem Notes None recorded. Procedures Surgical History Date Name Laterality Status Provider Name and Address Organization Details Recorded Time 5 Knee Kenalog 40 1cc Injection, Bilateral completed Larry Ayers PA-C [address], [place], [address], [facility] 03/28/2024 07:40:03 4 Knee Kenalog 40 1cc Injection, Bilateral completed Larry Ayers PA-C [address], [place], [address], [facility] 01/02/2024 07:46:11 4 Knee Kenalog 40 1cc Injection, Bilateral completed Rd Santana PA-C [address], [place], [address], [facility] 10/03/2023 12:34:48 4 Knee Kenalog 40 1cc Injection, Bilateral completed Larry Ayers PA-C [address], [place], [address], [facility] 06/29/2023 22:30:11 Imaging Results Imaging Date Name Status LastModified by Organiz ation Details LastModified Time 06/21/2024 XR, knee, 4 or more view completed [facility] [address], [place], [address], 06/21/2024 14:34:36 06/21/2024 XR, knee, 4 or more view completed [facility]FACE [facility] [address], [place], [address], 06/21/2024 14:34:38 Procedure Notes None recorded. Medical Equipment None [...] and Address Organization Details Last Updated DateTime 06/24/2023 162.56 cm 30.9 kg/m2 [address] VAZQUEZY [facility] 06/24/2023 14:47:18 Date Recorded Body height Body mass index (BMI) Body weight Provider Name and Address Organization Details Last Updated DateTime 10/04/2023 162.56 cm 30.9 kg/m2 42670.63 g ED GARTH [facility] 10/04/2023 11:06:23 Date Recorded Body height Provider Name an d Address Organization Details Last Updated DateTime 01/02/2024 162.56 cm MELVA MILIAN [facility] 01/02/2024 11:05:10 Date Recorded Body height Provider Name an d Address Organization Details Last Updated DateTime 03/28/2024 162.56 cm MELVA MILIAN [facility] 03/28/2024 09:37:52 Date Recorded Body height Body mass index (BMI) Body weight Provider Name and Address Organization Details Last Updated DateTime 06/21/2024 160.02 cm 33.5 kg/m2 27032.96 g JOSETTE BERMEO [facility] 06/21/2024 14:34:28 Social History None recorded. Functional Status None recorded. Mental Status None recorded. Family History Nothing Reported. Medical History Condition Response Arthritis Y Hypertension Y Gynecological HistoryNo gynecological history recorded. Obstetrics History GPAL:G 0 P 0 0 0 0 Past Encounters Encounter ID Performer Location Encounter Start Date Encounter Closed Date Diagnosis/Indication Diagnosis SNOMED-CT Code Diagnosis ICD10 Code Diagnosis Note [id number] BETTINA [address] [place] [address] 06/24/2023 14:24:20 07/18/2023 09:57:34 Osteoarthritis of right knee joint 0746394667 82557 M17.11 Osteoarthr itis of left knee joint 1392166446 [id number] Santana PA-C [facility] [address] [place] [address] 10/04/2023 11:00:53 10/04/2023 11:27:06 Bilateral osteoarthritis of knees 0444786345 60403 M17.0 [id number] Larry Ayers PA-C [facility] [address] [place] [address] 01/02/2024 11:01:52 01/24/2024 15:42:19 Osteoarthritis of right knee joint 6481855491 86151 M17.11 Osteoarthr itis of left knee joint 3656195797 58970 M17.12 [id number] Larry Ayers PA-C [facility] [address] [place] [address] 03/28/2024 09:29:17 04/10/2024 12:53:24 Osteoarthritis of right knee joint 4714991095 77871 M17.11 Osteoarthr itis of left knee joint 6457116454 74707 M17.12 [id number] MD [facility] [address] [place], [place] [address] [address] 06/21/2024 13:44:44 06/21/2024 17:36:21 Pain of knee region 3574835387 M25.561 M25.562 G89.29 Bilateral osteoarthritis of knees 6417198290 60100 M17.0 Health Concerns Section Related Observation LastModified by Organization Detai ls LastModified Time None Recorded Concern Status LastModified by Organization Details LastModified Time None Recorded Advance Directives Directive None Recorded Payers Encounter Date Sequence Insurance Name Policy Number Policy Fitzpatrick Covered Member ID Fitzpatrick Member ID Guarantor Name 06/24/2023 1 [employer] MED[employer]VANTAGE PLAN (MEDICARE REPLACEMENT HMO) [id number] Cecilia Clay Desilets [id number] Cecilia Clay Desilets 10/04/2023 1 [employer] MED[employer]VANTAGE PLAN (MEDICARE REPLACEMENT HMO) [id number] Cecilia D D Desilets [id number] Cecilia D Desilets 01/02/2024 1 [employer] MED[employer]VANTAGE PLAN (MEDICARE REPLACEMENT HMO) [id number] 04 Cecilia D D Desilets [id number] Cecilia D Desilets 03/28/2024 1 [employer] MED[employer]VANTAGE PLAN (MEDICARE REPLACEMENT HMO) [id number] Cecilia D D Desilets [id number] Cecilia D Desilets 06/21/2024 1 [employer] MED[employer]VANTAGE PLAN (MEDICARE REPLACEMENT HMO) [id number] Cecilia D D Desilets [id number] Cecilia D Desilets Notes Date Note Type Note Provider Name and Address Organization Details Recorded Time 06/24/2023 text/html I am seeing the patient today under the supervision of {{Hailey* Chio} } who was available but who did not see the patient. Chief Complaint The patient presents today for recheck of bilateral knee osteoarthritis. Is known to have knee arthritis treated conservatively to this point with {{1 2 3*}} months relief of symptoms. Presents today for recheck secondary to increased knee pain. History of Present Illness ? Allergy list reviewed ? Medication list reviewed Past Medical/Surgical History Reviewed today, otherwise unchanged per intake sheet. Physical Findings General Appearance: ? ? ? Well developed. ? ? ? In no acute distress. Musculoskeletal System: Knee: General/bilateral: ? ? ? No laxity of the knee. Right Knee: ? Medial aspect was tender on palpation. ? ? ? No erythema. ? ? ? No warmth. Left Knee: ? Medial aspect was tender on palpation. ? ? ? No erythema. ? ? ? No warmth. Musculoskeletal Scales: General/bilateral: ? Mild effusion noted. Neurological: ? ? ? Oriented to time, place, and person. Gait And Stance: ? ? ? Normal. Psychiatric: ? ? ? Mood was appropriate to the affect. Left knee 0-120 degrees of flexion with discomfort. Right knee 0-120 degrees of flexion with discomfort. Assessment ? Osteoarthritis of knee -bilateral knees Plan More than 50% of todays visit was spent on direct patient counseling regarding their knee condition and treatment options both operative with knee arthroplasty and non-operative, including oral medications and injection therapy. After discussion, my clinical decision was to go forth with an intra-articular cortisone injection. After explaining risks and benefits, under meticulous aseptic technique, each knee was injected with, 1cc of Kenalog 40mgs and 4 cc of Marcaine 1/4%. They tolerated the procedures well. Post injection precautions reviewed. Follow up with us in 3 months for further discussion of total knee replacement surgery versus continued conservative treatment. Larry Ayers PA-C [address] [facility] [address], [place], [address], [place] [facility] 06/29/2023 22:30:24 10/04/2023 text/html I am seeing the patient today under the supervision of {{Susy morse* Brothers}} who was available but who did not see the patient. HPI:Patient presents today follow-up regarding their {{Left Right Bilatera l*}} knee. Previous injection 06/24/23 gave good relief until recent. Dqis-ugv-xafcjee medications are helping somewhat but not significantly. Pain is constant aching sometimes sharp pain with giving out sensations. Past family, medical, social history and review of systems has been reviewed, updated and is located in the patient? s chart. Examination:The patient is well appearing and in no apparent distress. Alert and oriented x3. Gait is symmetric. Examination of the {{Left Right Bilatera l*}} knees reveal no evidence of any edema, erythema, or warmth. No Deformity. Range of motion of the knee limited with mild discomfort at the end ranges. Mild effusion. Does have some tenderness to palpation about the medial hemijoint line. No tenderness to palpation about the lateral hemijoint line. Patellofemoral crepitus is noted. Negative Emmy? s . Calf is supple and nontender. Neurovascularly intact distally. Impression:{{Left Rig ht Bilateral*}} Knee osteoarthritisPlan:We discussed the role of conservative management including medications, physical therapy, injection and bracing. At this point the patient elected to proceed with repeat bilateral knees cortisone injection. Please see procedure note. They will follow up with us as scheduled. All of their concerns were addressed and they understand and agree with the plan. Speech recognition healthcare applications analyst software was used to create portions of this document. An attempt at proofreading has been made to minimize errors. Please call for corrections. Rd Santana PA-C [address] [facility] [address], [place], [address], [place] [facility] 10/04/2023 11:16:34 01/02/2024 text/html I am seeing the patient today under the supervision of {{Hailey* Chio} } who was available but who did not see the patient. Chief Complaint The patient presents today for recheck of bilateral knee osteoarthritis. Is known to have knee arthritis treated conservatively to this point with {{1 2 3*}} months relief of symptoms. Presents today for recheck secondary to increased knee pain. History of Present Illness ? Allergy list reviewed ? Medication list reviewed Past Medical/Surgical History Reviewed today, otherwise unchanged per intake sheet. Physical Findings General Appearance: ? ? ? Well developed. ? ? ? In no acute distress. Musculoskeletal System: Knee: General/bilateral: ? ? ? No laxity of the knee. Right Knee: ? Medial aspect was tender on palpation. ? ? ? No erythema. ? ? ? No warmth. Left Knee: ? Medial aspect was tender on palpation. ? ? ? No erythema. ? ? ? No warmth. Musculoskeletal Scales: General/bilateral: ? Mild effusion noted. Neurological: ? ? ? Oriented to time, place, and person. Gait And Stance: ? ? ? Normal. Psychiatric: ? ? ? Mood was appropriate to the affect. Left knee 0-120 degrees of flexion with discomfort. Right knee 0-120 degrees of flexion with discomfort. Assessment ? Osteoarthritis of knee -bilateral knees Plan More than 50% of todays visit was spent on direct patient counseling regarding their knee condition and treatment options both operative with knee arthroplasty and non-operative, including oral medications and injection therapy. After discussion, my clinical decision was to go forth with an intra-articular cortisone injection. After explaining risks and benefits, under meticulous aseptic technique, each knee was injected with, 1cc of Kenalog 40mgs and 4 cc of Marcaine 1/4%. They tolerated the procedures well. Post injection precautions reviewed. Follow up with us in 3 months for further discussion of total knee replacement surgery versus continued conservative treatment. Larry Ayers PA-C [address] [facility] [address], [place], [address], [facility] 01/02/2024 12:17:02 03/28/2024 text/html I am seeing the patient today under the supervision of {{Hailey* Chio} } who was available but who did not see the patient. Chief Complaint The patient presents today for recheck of bilateral knee osteoarthritis. Is known to have knee arthritis treated conservatively to this point with {{1 2 3*}} months relief of symptoms. Presents today for recheck secondary to increased knee pain. History of Present Illness ? Allergy list reviewed ? Medication list reviewed Past Medical/Surgical History Reviewed today, otherwise unchanged per intake sheet. Physical Findings General Appearance: ? ? ? Well developed. ? ? ? In no acute distress. Musculoskeletal System: Knee: General/bilateral: ? ? ? No laxity of the knee. Right Knee: ? Medial aspect was tender on palpation. ? ? ? No erythema. ? ? ? No warmth. Left Knee: ? Medial aspect was tender on palpation. ? ? ? No erythema. ? ? ? No warmth. Musculoskeletal Scales: General/bilateral: ? Mild effusion noted. Neurological: ? ? ? Oriented to time, place, and person. Gait And Stance: ? ? ? Normal. Psychiatric: ? ? ? Mood was appropriate to the affect. Left knee 0-120 degrees of flexion with discomfort. Right knee 0-120 degrees of flexion with discomfort. Assessment ? Osteoarthritis of knee -bilateral knees Plan More than 50% of todays visit was spent on direct patient counseling regarding their knee condition and treatment options both operative with knee arthroplasty and non-operative, including oral medications and injection therapy. After discussion, my clinical decision was to go forth with an intra-articular cortisone injection. After explaining risks and benefits, under meticulous aseptic technique, each knee was injected with, 1cc of Kenalog 40mgs and 4 cc of Marcaine 1/4%. They tolerated the procedures well. Post injection precautions reviewed. Follow up with us in 3 months for further discussion of total knee replacement surgery versus continued conservative treatment. Larry Ayers PA-C [address] [facility] [address], [place], [address], [facility] [facility] 03/28/2024 17:03:00 OBGyn Episode No OBEpisode recorded.
--- OUTSIDE RECORDS SUMMARY | 2024-06-22 13:23 | XMS_ITS | Patient Health Record ---
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 [employer] Black Belt Name Role Phone Andrew Gómez MD Primary Care Provider Sage Starr Unavailable [phone] Allergies Allergen (clinical drug ingredient) Drug/Non Drug Allergy documented on EMR Reaction Allergy Type Onset Date Status Seasonale Unknown Drug Allergy Active Reason For Referral No Information Medications Medication SIG (Take, Route, Frequency, Duration) Notes Start Date End Date Status Melatonin 5 MG 1 tablet in the even ing Orally Once a day for 30 day(s) Active Metoprolol Succinate ER 50 MG 1 tablet Orally Once a day for 30 day(s) Active Claritin 10 MG 1 tablet Orally Once a day for 30 day(s) Active PriLOSEC 20mg Not-Ta dar Famotidine 20 MG 1 tablet at bedtime as needed Orally Once a day for 30 day(s) Active Zoloft Not-Taking Flonase Active Furosemide Active Multivitamin Active Sertraline HCl 100 MG 1 tablet Orally On ce a day for 30 day(s) Active Align Active Vitamin D3 Active Ammonium Lactate 12 % 1 application to affected area Externally to feet Twice a day for 30 days Active Calcium Not-Taking Magnesium Active Immunizations Vaccine Route Administration Date Status Comme nts COVID-19 Pfizer BioNTech Vaccine Unknown 08/28/2021 Administered 03/13/20, 04/03, , 11/02/20, Social History Tobacco Use: Social History Observation Description Date Details (start date - stop date) Never Smoker NA - NA Tobacco use other than smoking: Question Answer Notes Are you an other tobacco user? No Tobacco Control (Standard) Question Answer Notes Tobacco use: Nonsmoker Additional Findings: Tobacco non-user Current no nsmoker AUDIT-C (Standard) Question Answer Notes Did you have a drink containing alcohol in the p ast year? No Points 0 Interpretation Negative Problems Problem Type SNOMED Code ICD Code Onset Dates Problem Status W/U Status Risk Notes Problem Atherosclerosis of onondaga arteries of the extremities ([id number]) Atherosclerosis of onondaga artery of both lower extremities, with unspecified presence of clinical manifestation (I70.203) Active confirmed Vital Signs Height 5ft 4in in 01/04/2024 Weight 185 lbs 01/04/2024 BMI 31.75 kg/m2 01/04/2024 Procedures Procedure Date Ordered Date Performed Result Body Sit e 09821-KBEEHMY NAIL, 1-08/31/2023 N/A 27995-Gffv Destruction, 1-14 08/31/2023 N/A 54923-MZAN SKIN LESIONS, OVER 4 08/31/2023 N/A U5315-CWNUSBEQ DYSTROPHIC NAILS ANY # 08/31/2023 N/A 55152-TBBBZGE NAIL, 1-5 01/04/2024 N/A 30019-HCOW SKIN LESIONS, OVER 4 01/04/2024 N/A F1335-HJXLSIOQ DYSTROPHIC NAILS ANY # 01/04/2024 N/A 77702-RIKBRKV NAIL, 1-5 04/04/2024 N/A 96496-QTUN SKIN LESIONS, OVER 4 04/04/2024 N/A F5424-AIZPPHUF DYSTROPHIC NAILS ANY # 04/04/2024 N/A Encounters Encounter Location Date Provider Diagnosis [facility] [address] 08/31/2023 Sage Hedrick Atherosclerosis of onondaga artery of both lower extremities, with unspecified presence of clinical manifestation I70.203 ; Tinea unguium B35.1 ; Pain in right toe(s) M79.674 ; Pain in left toe(s) M79.675 ; Plantar wart B07.0 and Pain in left foot M79.[address] [address] 01/04/2024 Sage Hedrick Atherosclerosis of onondaga artery of both lower extremities, with unspecified presence of clinical manifestation I70.203 ; Tinea unguium B35.1 ; Pain in right toe(s) M79.674 and Pain in left toe(s) M79.675 [facility] [address] [facility] [address] [place] [address] 04/04/2024 Sage Hedrick Atherosclerosis of onondaga artery of both lower extremities, with unspecified presence of clinical manifestation I70.203 ; Tinea unguium B35.1 ; Pain in right toe(s) M79.674 and Pain in left toe(s) M79.675 [facility] [address] [place] [address] 11/29/2023 Sage Hedrick Assessments Encounter Date Diagnosis (ICD Code) Assessment Notes Treatment Notes Treatment Clinical Notes Section Notes 08/31/2023 Tinea unguium (ICD-10 - B35.1) 08/31/2023 Atherosclerosis of onondaga artery of both lower extremities, with unspecified presence of clinical manifestation (ICD-10 - I70.203) 01/04/2024 Tinea unguium (ICD-10 - B35.1) 01/04/2024 Atherosclerosis of onondaga artery of both lower extremities, with unspecified presence of clinical manifestation (ICD-10 - I70.203) 04/04/2024 Tinea unguium (ICD-10 - B35.1) 04/04/2024 Atherosclerosis of onondaga artery of both lower extremities, with unspecified presence of clinical manifestation (ICD-10 - I70.203) 04/04/2024 Pain in right toe(s) (ICD-10 - M79.674) 01/04/2024 Pain in right toe(s) (ICD-10 - M79.674) 08/31/2023 Pain in right toe(s) (ICD-10 - M79.674) 08/31/2023 Pain in left toe(s) (ICD-10 - M79.675) 01/04/2024 Pain in left toe(s) (ICD-10 - M79.675) 04/04/2024 Pain in left toe(s) (ICD-10 - M79.675) 08/31/2023 Plantar wart (ICD-10 - B07.0) 08/31/2023 Pain in left foot (ICD-10 - M79.672) Plan Of Treatment Pending Test Test Name Order Date X ray : Foot, right 3V 03/17/2023 36086-MEMBKXI NAIL, 1-5 05/25/2023 71736-QPBZODE NAIL, 1-5 03/17/2023 90677-PKMUAZD NAIL, -5 08/31/2023 90747-RGEHXSW NAIL, 1-5 01/04/2024 84727-UDBDDEH NAIL, 1-5 10/19/2010 74387-LYHQAKJ NAIL, 1-5 02/15/2011 34649-SJCQOIE NAIL, -5 02/17/2022 37647-MKVPQWP NAIL, -05/19/2022 87864-LHPOELJ NAIL, -08/18/2022 92423-LKMOYNZ NAIL, 1-5 12/09/2022 39963-EBEYSND NAIL, -04/04/2024 00598-Stqr Destruction, -14 12/09/2022 72931-Eoad Destruction, -14 08/18/2022 12774-Usnw Destruction, -14 05/19/2022 41762-Qfrz Destruction, -14 08/31/2023 38609-Stfd Destruction, -14 03/17/2023 16957-Raak Destruction, -05/25/2023 86119-Mlalemte Plate 02/17/2022 29206-PBVE SKIN LESIONS, OVER 4 02/17/19 23 11248-SCLZ SKIN LESIONS, OVER 4 08/19/19 23 67552-USKM SKIN LESIONS, OVER 4 12/10/19 23 40557-AWIM SKIN LESIONS, OVER 4 05/25/19 24 65594-KKHD SKIN LESIONS, OVER 4 03/17/19 24 44783-SGEK SKIN LESIONS, OVER 4 08/31/19 24 70827-HDHH SKIN LESIONS, OVER 4 05/20/19 23 80962-AELD SKIN LESIONS, OVER 4 01/04/20 24 28254-JWMB SKIN LESIONS, OVER 4 04/04/19 25 T2553-QZMNXQKA DYSTROPHIC NAILS ANY # F2276-VGZQZSKM DYSTROPHIC NAILS ANY # A1523-OBZLVVLZ DYSTROPHIC NAILS ANY # B2733-NHMWXRMT DYSTROPHIC NAILS ANY # A4324-SPERKOOV DYSTROPHIC NAILS ANY # I4225-SEEMTYBG DYSTROPHIC NAILS ANY # W3998-TWVMNZUU DYSTROPHIC NAILS ANY # N9327-THHUGHGH DYSTROPHIC NAILS ANY # W1142-UVYFQZAW DYSTROPHIC NAILS ANY # Next Appt Details Provider Name:Sage Vanessa [place] , 07/04/2024 10:00:00 AM, [address] [facility], [address], [place], [address], Insurance Providers Payer Name Payer Address Payer Phone Subscriber Number Group Number Insured Name Patient Relationship to Insured Coverage Start Date Coverage End Date [facility] [address] [place] [address] [id number] DesCecilia pablo Self - patient is the insured Medical (General) History Medical History History ICD Code reflux mumps Arthritis Anxiety back, hip, knee pain Chron's/ Colitis Cataracts chicken pox measles depression chronic sinusitis Surgical History Surgery Date(Month/Year) kidney stones cataract surgery Hospitalization History Reason Date(Month/Year) [facility] [place]- heat exhaustion 09/2022
--- OUTSIDE RECORDS SUMMARY | 2024-06-22 13:23 | XMS_ITS ---
Author Organization [facility] Address [address] [facility] [place] [address] Care Team Providers Care Dairy Management Specialist Name Role Phone Andrew Gómez MD Primary Care Provider Sage Starr Unavailable [phone] Allergies Allergen (clinical drug ingredient) Drug/Non Drug Allergy documented on EMR Reaction Allergy Type Onset Date Status Seasonale Unknown Drug Allergy Active REASON FOR VISIT At Risk Footcare, Painful Nail(s) aggrevated by shoes and causing difficulty standing/walking. Medications Medication SIG (Take, Route, Frequency, Duration) Notes Start Date End Date Status Vitamin D3 Active Calcium Not-Taking PriLOSEC 20mg Not-Ta dar Zoloft Not-Taking Sertraline HCl 100 MG 1 tablet Orally On ce a day for 30 day(s) Active Furosemide Active Magnesium Active Melatonin 5 MG 1 tablet in the even ing Orally Once a day for 30 day(s) Active Metoprolol Succinate ER 50 MG 1 tablet Orally Once a day for 30 day(s) Active Multivitamin Active Align Active Ammonium Lactate 12 % 1 application to affected area Externally to feet Twice a day for 30 days Active Claritin 10 MG 1 tablet Orally Once a day for 30 day(s) Active Famotidine 20 MG 1 tablet at bedtime as needed Orally Once a day for 30 day(s) Active Flonase Active Social History Tobacco Use/Smoking Question Answer Notes Additional Findings: Tobacco Non-User Current no n-smoker Tobacco use other than smoking: Question Answer Notes Are you an other tobacco user? No Vital Signs Height 5ft 4in in 01/04/2024 Weight 185 lbs 01/04/2024 BMI 31.75 kg/m2 01/04/2024 Procedures Procedure Date Ordered Date Performed Result Body Sit e 74733-ZHEYPZD NAIL, 1-5 01/04/2024 N/A 02339-NEQV SKIN LESIONS, OVER 4 01/04/2024 N/A B0009-TTUHOEBM DYSTROPHIC NAILS ANY # 01/04/2024 N/A Encounters Encounter Location Date Provider Diagnosis [facility] [place] [address] [address] 01/04/2024 Sagedeb Hedrick Atherosclerosis of [place] artery of both lower extremities, with unspecified presence of clinical manifestation I70.203 ; Tinea unguium B35.1 ; Pain in right toe(s) M79.674 and Pain in left toe(s) M79.675 Assessments Encounter Date Diagnosis (ICD Code) Assessment Notes Treatment Notes Treatment Clinical Notes Section Notes 01/04/2024 Atherosclerosis of [place] artery of both lower extremities, with unspecified presence of clinical manifestation (ICD-10 - I70.203) 01/04/2024 Tinea unguium (ICD-10 - B35.1) 01/04/2024 Pain in right toe(s) (ICD-10 - M79.674) 01/04/2024 Pain in left toe(s) (ICD-10 - M79.675) Plan Of Treatment Pending Test Test Name Order Date 27040-LJELMFD NAIL, 1-5 01/04/2024 02707-DAFM SKIN LESIONS, OVER 4 01/04/20 24 J1052-XPSOOHMP DYSTROPHIC NAILS ANY # Next Appt Details Follow Up: prn, Reason: Provider Name:Sage Hedrick , 07/04/2024 10:00:00 AM, [address] [facility] [place] [address], [place], [address], Procedure Notes * Category Sub-Category Detail Notes Keratoma Treatment Parring or Cutting o f Benign Hyperkeratotic Lesion(s) (-57) More than 4 Lesions - The Benign hyperkeratotic lesions, ( 8) in total, locations as stated and described in exam, were pared, and/or cut utilizing a sterile 15 blade, tissue nippers, and/or power dremel instrumentation - 14979, Q8 Debride Nails 1-5 Procedure: Performance of this nail treatment by a nonprofessional would put this patients foot and overall health at risk. Therefore, debridement to affected nail(s), as described in exam, was performed extensively to reduce/remove overall nail length, girth, thickness, subungual debris, and necrotic tissue, by manual and/or electrical means through the use of a nail nipper and/or dremel-type precision grinder external, to a more viable healthy nail plate or bed tissue 5 nails or less in number. Silver nitrate was used for any petechial bleeding as necessary. Definitive antifungal treatment options, both pharmaceutical and surgical, have been reviewed and discussed with the patient. The patient solely prefers the use of intermittent/as needed professional debridement services for their nail condition and understands that additional periodic treatments may be required as necessary to maintain effective symptomatic relief - 79420 Nail Reduction Nail Reduction (-27) Trimming o f all dystrophic nails, locations as stated and described in exam, was performed to reduce/remove overall nail length and girth, by manual and electrical means with use of a nail nipper and/or dremel, to more viable healthy nail plate or bed tissue - G0127, Q8 Progress Notes * MAGGIMICHAELCecilia DDOB:[birth year] (78 yo F)Acc No.[id number]:01/04/2024 Progress Note Patient:Cecilia FISH Provider:?Sage Hedrick DPM :1945???Age:78 Y???Sex:Female D ate:01/04/2024 Address:[address] [place], [place] [id number] Pcp:Andrew Gómez MD Subjective: * Chief Complaints: * ???At Risk FootcarePainful N ail(s) aggrevated by shoes and causing difficulty standing/walking. * HPI: ???At Risk footcare:?Pt States Last PCP Visit:?Date?11/03/2023 * ROS:?General/Constitutional:?Nausea?denies.?Vomiting?denies.?Hunger Thirst?denies.?Loss appetite?denies.?Chills?denies.?Fatigue?denies.?Fever?denies.?Night Sweats?denies.?Unexplained weight loss?denies.?Unexplained weight gain?denies.?HEENTM:?Dentures?denies.?Dizziness?denies.?Glasses/contacts?admits.?Retinopathy?de nies.?Blurred/double vision?denies.?TMJ?denies.?Discharge/drainage?denies.?Implants?denies.?Sore throat?denies.?Dental implants?denies.?Hard of hearing ?admits.?Difficulty chewing/swallowing/speaking?denies.?Nose bleeds?denies.?Sore mouth?denies.?Respiratory:?On Oxygen?denies.?Pneumonia/pleurisy?denies.?Bronchitis?denies.?Emphysema?denies.?C oughing?denies.?Cough blood?denies.?Shortness of breath?denies.?Wheezing?denies.?Cardiovascular:?Pacemaker?denies.?MVP?denies.?WPW?denies.?CHF?denies.?Heart attack?denies.?Septal defect?denies.?Rapid beat?denies.?Chest pain ?denies.?Atrial Fib.?denies.?Murmur/Palpitations?denies.?Gastrointestinal:?Hemorrhoids?denies.?Stomach/Abdominal pain?admits.?Dark blood stool?denies.?Irritable bowel ?admits.?Constipation?denies.?Diarrhea?denies.?Hematology:?Swelling?denies.?Clots?denies.?Varicose Veins?denies.?Bruising?denies.?Bleeding problem?denies.?Genitourinary:?Blood urine?denies.?Frequent/Painfu/urination/bladder control?denies.?Kidney stones?denies.?Infection (UTI)?denies.?Nephropathy?denies.?sex trans dis (STD)?denies.?Prostate?denies.?Musculoskeletal:?Hammertoes?admits.?Bunions?denies.?Back Pain?denies.?Muscle Cramps/ Resting?denies.?Muscle cramps / walking?denies.?Generalized aches and pains?admits.?Weakness?denies.?Integ.:?Colon?denies.?Scars?denies.?Corns/calluses?admits.?Ingrown nails?admits.?Painful nails?admits.?Open Sores?denies.?Rashes?denies.?Neurologic:?Difficulty sleeping?denies.?Brain disorder?denies.?Numbness?denies.?Balance trouble?denies.?Confusion?denies.?Fainting/blackouts?denies.?Tingling?denies.?Tr emors?denies.? * Medical History:? * Surgical History:?kidney sto jennifer cataract surgery * Hospitalization/Major Diagno stic Procedure:?[facility]- heat exhaustion 09/2022 * Family History:?Mother: dece ased, diagnosed with Unspecified essential hypertension, Unspecified cerebral artery occlusion with cerebral infarction.?Father: .?Siblings: foot problems.?Spouse: .? * Social History:?Tobacco Use:?Tobacco Use/Smoking?Additional Findings: Tobacco Non-User?Current non-smoker ?Tobacco use other than smoking?Are you an other tobacco user??No * Medications:?TakingAlign Amm onium Lactate 12 % Cream 1 application to affected area Externally to feet Twice a day Claritin 10 MG Tablet 1 tablet Orally Once a day Famotidine 20 MG Tablet 1 tablet at bedtime as needed Orally Once a day Flonase Furosemide Magnesium Melatonin 5 MG Tablet 1 tablet in the evening Orally Once a day Metoprolol Succinate ER 50 MG Tablet Extended Release 24 Hour 1 tablet Orally Once a day Multivitamin Sertraline HCl 100 MG Tablet 1 tablet Orally Once a day Vitamin D3 Taking Align Taking Ammonium Lactate 12 % Cream 1 application to affected area Externally to feet Twice a day Taking Claritin 10 MG Tablet 1 tablet Orally Once a day Taking Famotidine 20 MG Tablet 1 tablet at bedtime as needed Orally Once a day Taking Flonase Taking Furosemide Taking Magnesium Taking Melatonin 5 MG Tablet 1 tablet in the evening Orally Once a day Taking Metoprolol Succinate ER 50 MG Tablet Extended Release 24 Hour 1 tablet Orally Once a day Taking Multivitamin Taking Sertraline HCl 100 MG Tablet 1 tablet Orally Once a day Taking Vitamin D3 Not-Taking/PRNCalcium PriLOSEC 20mg Zoloft Medication List reviewed and reconciled with the patientNot-Taking/PRN Calcium Not-Taking/PRN PriLOSEC 20mg Not- Taking/PRN Zoloft Medication List reviewed and reconciled with the patient * Allergies:?Seasonaleyes[Sivakumar rgies Verified] Objective: * Vitals:?Ht: 5ft 4in, Wt: 185 , BMI: 31.75, Shoe size: 9.5M, Wt-k.91 kg. * Examination: ???Vascular: ?DP PULSES(B):? 1/4, B/L.?PT PULSES(B):? 0/4, B/L.?CAPILLARY FILL TIME:? delayed, all digits, B/L.?TROPHIC CONDITION-TEXTURE/ELASTICITY/TURGOR/HAIR GROWTH(B):? decreased,?with sparse to absent hair growth, B/L.?TEMPERTURE GRADIENT(C):? decreased, cool to cool, proximal to distal, B/L.?PIGMENTATION:? rubrous, B/L.?EDEMA(C):?absent, B/L.?CLAUDICATION(C):?denies, B/L.?REST PAIN:?denies, B/L.?Nails: ?NAILS are:?Elongated, overgrown, dystrophic, lytic, greater than 3mm thick, discolored and friable with crumbly malodorous subungual debris, with pain on palpation, TA, T4, T5, T6, T9, all other nails not described with characteristics as possessing mycosis are elongated, overgrown, and dystrophic.?Dermatologic: ?SKIN FINDINGS:? Skin exam reveals Keratotic lesion(s) located at, Medial plantar, IPJ, TA, Medial plantar, IPJ, T5, SUB MTH (s), 2, B/L , SUB MTH (s), 5, B/L ,Plantar, Heel(s), B/L.?VERRUCA:?NOW, NO FURTHER SIGN of mosaic papule(s) with skin lines now evident and visible, plantar Midfoot , LEFT.? Assessment: * Assessment: 1.?Tinea unguium - B35.1???2 .?Atherosclerosis of [place] artery of both lower extremities, with unspecified presence of clinical manifestation - I70.203 (Primary)???3.?Pain in right toe(s) - M79.674???4.?Pain in left toe(s) - M79.675??? Plan: * Treatment: 2.?Tinea unguium?Procedure: 11790-OUDBTAE NAIL, 1-5 * Procedures:?Debride Nails 1-5:?Procedure:?Performance of this nail treatment by a nonprofessional would put this patients foot and overall health at risk. Therefore, debridement to affected nail(s), as described in exam, was performed extensively to reduce/remove overall nail length, girth, thickness, subungual debris, and necrotic tissue, by manual and/or electrical means through the use of a nail nipper and/or dremel-type precision grinder external, to a more viable healthy nail plate or bed tissue 5 nails or less in number. Silver nitrate was used for any petechial bleeding as necessary. Definitive antifungal treatment options, both pharmaceutical and surgical, have been reviewed and discussed with the patient. The patient solely prefers the use of intermittent/as needed professional debridement services for their nail condition and understands that additional periodic treatments may be required as necessary to maintain effective symptomatic relief - 67110.?Keratoma Treatment:?Parring or Cutting of Benign Hyperkeratotic Lesion(s)?(-57) More than 4 Lesions - The Benign hyperkeratotic lesions, ( 8) in total, locations as stated and described in exam, were pared, and/or cut utilizing a sterile 15 blade, tissue nippers, and/or power dremel instrumentation - 65721, Q8.?Nail Reduction:?Nail Reduction?(-27) Trimming of all dystrophic nails, locations as stated and described in exam, was performed to reduce/remove overall nail length and girth, by manual and electrical means with use of a nail nipper and/or dremel, to more viable healthy nail plate or bed tissue - G0127, Q8.? * Procedure Codes:?G0127 RONNA ING DYSTROPHIC NAILS ANY #, Modifiers: XS , [id number] DEBRIDE NAIL, 1-5, Modifiers: XS 19161 TRIM SKIN LESIONS, OVER 4, Modifiers: XS , Q8 * Follow Up:?prn * Images: * Sign off status: Completed true * Provider:?Sage Hedrick DPM Date:?2023 Generated for Adrianna billy/Aishwarya/Mayda on:?06/22/2024 01:23 PM EDT History and Physical Notes * HPI (History of Present Illness) Category Sub-Category Detail Notes Category Not es At Risk footcare Pt States Last PCP Visit: Date: Examination Category Sub-Category Detail Notes Category Not es Dermatologic SKIN FINDINGS: Skin exam reveal s Keratotic lesion(s) located at, Medial plantar, IPJ, TA, Medial plantar, IPJ, T5, SUB MTH (s), 2, B/L , SUB MTH (s), 5, B/L ,Plantar, Heel(s), B/L VERRUCA: NOW, NO FURTHER SIGN of mosaic papule(s) with skin lines now evident and visible, plantar Midfoot , LEFT Vascular DP PULSES (B): 1/4, B/L PT PULSES (B): 0/4, B/L CAPILLARY FILL TIME: delayed, all digits , B/L TEMPERTURE GRADIENT (C): decreased, cool to cool, proximal to distal, B/L TROPHIC CONDITION-TEXTURE/ELASTICITY/TURGOR/HAIR GROWTH (B): decreased, with sparse to absent hair gr owth, B/L EDEMA (C): absent, B/L CLAUDICATION (C): denies, B/L REST PAIN: denies, B/L PIGMENTATION: rubrous, B/L Nails NAILS are: Elongated, overg rown, dystrophic, lytic, greater than 3mm thick, discolored and friable with crumbly malodorous subungual debris, with pain on palpation, TA, T4, T5, T6, T9, all other nails not described with characteristics as possessing mycosis are elongated, overgrown, and dystrophic
--- OUTSIDE RECORDS SUMMARY | 2024-06-22 13:23 | XMS_ITS ---
Author Organization [facility] Address [address] [place] [address] Care Team Providers Care Cook Dinner Name Role Phone Rico CABELLO, Andrew Primary Care Provider Sage Starr Unavailable [phone] Encounters Encounter Location Date Provider Diagnosis [address] [address] 11/30/2023 Sage Hedrick Plan Of Treatment Next Appt Details Provider Name:Sage Hedrick , 07/04/2024 10:00:00 AM, [address] [place] [address], [phone], Progress Notes * Cecilia LIN DDOB:[birth year] (78 yo F)Acc No.[id number]:11/30/2023 Progress Note Patient:?Cecilia LIN Provider:?Sage Hedrick DPM :1945???Age:78 Y???Sex:Female D ate:11/30/2023 Address:[address] [place] [address] Pcp:Andrew Gómez MD Subjective: * Chief Complaints: * ??? * Medical History:? Objective: * Vitals:? Assessment: Plan: * Treatment: * Images: * The named appointment provid er may or may not be the originator of this progress note, and it is not deemed complete until electronically signed by the appointment provider. Sign off status: Pending * Provider:Grant Hedrick DPM Date:?2023 Generated for Adrianna billy/Aishwarya/Mayda on:?06/22/2024 01:23 PM EDT
--- OUTSIDE RECORDS SUMMARY | 2024-06-22 13:23 | XMS_ITS ---
Author Organization [facility] Address [address] [place] [address] Care Team Providers Care Sweetbread Trimmer Name Role Phone Andrew Gómez MD Primary Care Provider Sage Starr Unavailable [phone] Allergies Allergen (clinical drug ingredient) Drug/Non Drug Allergy documented on EMR Reaction Allergy Type Onset Date Status Seasonale Unknown Drug Allergy Active REASON FOR VISIT At Risk Footcare, Painful Nail(s) aggrevated by shoes and causing difficulty standing/walking. Medications Medication SIG (Take, Route, Frequency, Duration) Notes Start Date End Date Status Claritin 10 MG 1 tablet Orally Once a day for 30 day(s) Active Famotidine 20 MG 1 tablet at bedtime as needed Orally Once a day for 30 day(s) Active Flonase Active Furosemide Active Ammonium Lactate 12 % 1 application to affected area Externally to feet Twice a day for 30 days Active PriLOSEC 20mg Not-Ta dar Zoloft Not-Taking Align Active Vitamin D3 Active Calcium Not-Taking Multivitamin Active Sertraline HCl 100 MG 1 tablet Orally On ce a day for 30 day(s) Active Melatonin 5 MG 1 tablet in the even ing Orally Once a day for 30 day(s) Active Metoprolol Succinate ER 50 MG 1 tablet Orally Once a day for 30 day(s) Active Magnesium Active Social History Tobacco Use: Social History Observation [...] ast year? No Points 0 Interpretation Negative Procedures Procedure Date Ordered Date Performed Result Body Sit e 05500-PCHXCAW NAIL, 1-5 04/04/2024 N/A 64401-UGCL SKIN LESIONS, OVER 4 04/04/2024 N/A J1886-IPQKFFWQ DYSTROPHIC NAILS ANY # 04/04/2024 N/A Encounters Encounter Location Date Provider Diagnosis [facility] [place] [address] [place] [id number] 04/04/2024 Sage Hedrick Atherosclerosis of [place] artery of both lower extremities, with unspecified presence of clinical manifestation I70.203 ; Tinea unguium B35.1 ; Pain in right toe(s) M79.674 and Pain in left toe(s) M79.675 Assessments Encounter Date Diagnosis (ICD Code) Assessment Notes Treatment Notes Treatment Clinical Notes Section Notes 04/04/2024 Atherosclerosis of [place] artery of both lower extremities, with unspecified presence of clinical manifestation (ICD-10 - I70.203) 04/04/2024 Tinea unguium (ICD-10 - B35.1) 04/04/2024 Pain in right toe(s) (ICD-10 - M79.674) 04/04/2024 Pain in left toe(s) (ICD-10 - M79.675) Plan Of Treatment Pending Test Test Name Order Date 23064-OQURMBW NAIL, 1-5 04/04/2024 30255-YQZU SKIN LESIONS, OVER 4 04/04/19 25 M3728-NAEOSROA DYSTROPHIC NAILS ANY # Next Appt Details Follow Up: prn, Reason: Provider Name:Sage Hedrick , 07/04/2024 10:00:00 AM, [address] [facility], [place] [address], [place], [address], Procedure Notes * Category Sub-Category Detail Notes Keratoma Treatment Parring or Cutting o f Benign Hyperkeratotic Lesion(s) (-57) More than 4 Lesions - Due to the at risk nature of the patients medical condition as documented in the exam findings, performance of this keratoderma treatment is medically necessary as its management by an unskilled/untrained nonprofessional would put this patients foot and overall health at risk. Therefore, the benign hyperkeratotic lesions, ( 8 ) in total, locations as stated and described in the exam ( Medial plantar, IPJ, TA, Medial plantar, IPJ, T5, SUB MTH (s), 2, B/L , SUB MTH (s), 5, B/L ,Plantar, Heel(s), B/L ), were pared, and/or cut utilizing a sterile 15 blade, tissue nippers, and/or power dremel instrumentation by the physician of record - 16290, Q8 Debride Nails 1-5 Procedure: Due to the cli nical pathology outlined in the exam findings, performance of this nail treatment is medically necessary as its management by an unskilled/untrained nonprofessional would put this patients foot and overall health at risk. Therefore, debridement to affected nail(s), as described in exam ( TA, T4, T5, T6, T9 ), was performed exclusively by the physician of record to reduce/remove overall nail length, girth, thickness, subungual debris, and necrotic tissue, by manual and/or electrical means through the use of a nail nipper and/or dremel stylegrinder, to a more viable healthy nail plate or bed tissue 5 nails or fewer in number. Silver nitrate was used for any petechial bleeding as necessary. Definitive antifungal treatment options, both pharmaceutical and surgical, have been reviewed and discussed with the patient. The patient solely prefers the use of intermittent/as needed professional debridement services for their nail condition and understands that additional periodic treatments may be required as necessary to maintain effective symptomatic relief - 13008 Nail Reduction Nail Reduction (-27) Trimming o f all dystrophic nails - Due to the at risk nature of the patients medical condition as documented in the exam findings, performance of this nail treatment is medically necessary as its management by an unskilled/untrained nonprofessional would put this patients foot and overall health at risk. Therefore, the dystrophic nails, in locations as stated and described in the exam ( T1, T2, T3, T7, T8 ), were debrided by the phisician of record to reduce/remove overall nail length and girth, by manual and electrical means with use of a nail nipper and/or dremel, to more viable healthy nail plate or bed tissue - G0127, Q8 Progress Notes * Cecilia LIN DDOB:[birth year] (78 yo F)Acc No.[id number]:04/04/2024 Progress Note Patient:Cecilia FISH Provider:?Sage Hedrick DPM :1945???Age:78 Y???Sex:Female D ate:04/04/2024 Address:[address] [place], [place] [id number] Pcp:Andrew Gómez MD Subjective: * Chief Complaints: [...] jennifer cataract surgery * [place]ization/Major Diagno stic [place] [place] * Family History:?Mother: dece ased, diagnosed with Unspecified essential hypertension, Unspecified cerebral artery occlusion with cerebral infarction.?Father: .?Siblings: foot problems.?Spouse: .? * Social History:?Tobacco Use:?Tobacco use other than smoking?Are you an other tobacco user??No ?Tobacco Control (Standard)?Tobacco use:?Nonsmoker ?Additional Findings: Tobacco non-user?Current nonsmoker ???Drugs/Alcohol:?Drugs?Have you used drugs other than those for medical reasons in the past 12 months??No ???Miscellaneous:?Caffeine: yes, frequency:, 1-2 cups per day. ?Children: yes. ?Exercise: yes, gardening/yard work, walking. ?Marital status: . ???Drug/Alcohol:?AUDIT-C (Standard)?Did you have a drink containing alcohol in the past year??No ?Points?0 ?Interpretation?Negative * Medications:?TakingAlign Amm onium Lactate 12 % [...] patient * Allergies:?Seasonaleyes[Sivakumar rgies Verified] Objective: * Vitals:? * Examination: ???Vascular: ?DP PULSES (B):? 1/4, B/L.?PT PULSES (B):? 0/4, B/L.?CAPILLARY FILL TIME:? delayed, all digits, B/L.?TROPHIC CONDITION-TEXTURE/ELASTICITY/TURGOR/HAIR GROWTH (B):? decreased,?with sparse to absent hair growth, B/L.?TEMPERTURE GRADIENT (C):? decreased, cool to cool, proximal to distal, B/L.?PIGMENTATION:? rubrous, B/L.?EDEMA (C):?absent, B/L.?CLAUDICATION (C):?denies, B/L.?REST PAIN:?denies, B/L.?Nails: ?NAILS are:?Elongated, overgrown, dystrophic, lytic, greater than 3mm thick, discolored and friable with crumbly malodorous subungual debris, with pain on palpation, TA, T4, T5, T6, T9 , all other nails not described with characteristics as possessing mycosis are elongated, overgrown, and dystrophic (?T1, T2, T3, T7, T8?).?Dermatologic: ?SKIN FINDINGS:? Skin exam reveals Keratotic lesion(s) located at, Medial plantar, IPJ, TA, Medial plantar, IPJ, T5, SUB MTH (s), 2, B/L , SUB MTH (s), 5, B/L ,Plantar, Heel(s), B/L.? Assessment: * Assessment: 1.?Tinea unguium - B35.1???2 .?Atherosclerosis of [place] artery of both lower extremities, with unspecified presence of clinical manifestation - I70.203 (Primary)???3.?Pain in right toe(s) - M79.674???4.?Pain in left toe(s) - M79.675??? Plan: * Treatment: 2.?Tinea unguium?Procedure: 05533-FQHOXCH NAIL, 1-5 * Procedures:?Debride Nails 1-5:?Procedure:?Due to the clinical pathology outlined in the exam findings, performance of this nail treatment is medically necessary as its management by an unskilled/untrained nonprofessional would put this patients foot and overall health at risk. Therefore, debridement to affected nail(s), as described in exam (??TA,?T4,?T5,?T6,?T9?), was performed exclusively by the physician of record to reduce/remove overall nail length, girth, thickness, subungual debris, and necrotic tissue, by manual and/or electrical means through the use of a nail nipper and/or dremel stylegrinder, to a more viable healthy nail plate or bed tissue 5 nails or fewer in number. Silver nitrate was used for any petechial bleeding as necessary. Definitive antifungal treatment options, both pharmaceutical and surgical, have been reviewed and discussed with the patient. The patient solely prefers the use of intermittent/as needed professional debridement services for their nail condition and understands that additional periodic treatments may be required as necessary to maintain effective symptomatic relief - 87160.?Keratoma Treatment:?Parring or Cutting of Benign Hyperkeratotic Lesion(s)?(-57) More than 4 Lesions - Due to the at risk nature of the patients medical condition as documented in the exam findings, performance of this keratoderma treatment is medically necessary as its management by an unskilled/untrained nonprofessional would put this patients foot and overall health at risk. Therefore, the benign hyperkeratotic lesions, ( 8 ) in total, locations as stated and described in the exam (?Medial plantar,?IPJ,?TA,?Medial plantar,?IPJ,?T5,?SUB MTH (s),?2,?B/L?,?SUB MTH (s),?5,?B/L?,Plantar,?Heel(s),?B/L?), were pared, and/or cut utilizing a sterile 15 blade, tissue nippers, and/or power dremel instrumentation by the physician of record - 31725, Q8.?Nail Reduction:?Nail Reduction?(-27) Trimming of all dystrophic nails - Due to the at risk nature of the patients medical condition as documented in the exam findings, performance of this nail treatment is medically necessary as its management by an unskilled/untrained nonprofessional would put this patients foot and overall health at risk. Therefore, the dystrophic nails, in locations as stated and described in the exam ( T1, T2, T3, T7, T8 ), were debrided by the phisician of record to reduce/remove overall nail length and girth, by manual and electrical means with use of a nail nipper and/or dremel, to more viable healthy nail plate or bed tissue - G0127, Q8.? * Procedure Codes:?G0127 RONNA ING DYSTROPHIC NAILS ANY #, Modifiers: XS , [id number] DEBRIDE NAIL, 1-5, Modifiers: XS 08280 TRIM SKIN LESIONS, OVER 4, Modifiers: XS , Q8 * Follow Up:?prn * Images: * Sign off status: Completed true * Provider:?Sage Hedrick DPM Date:?2024 Generated for Adrianna billy/Aishwarya/Mayda on:?06/22/2024 01:22 PM EDT History and Physical Notes * HPI (History of Present Illness) Category Sub-Category Detail Notes Category Not es At Risk footcare Pt States Last PCP Visit: Date: 4 Examination Category Sub-Category Detail Notes Category Not es Dermatologic SKIN FINDINGS: Skin exam reveal s Keratotic lesion(s) located at, Medial plantar, IPJ, TA, Medial plantar, IPJ, T5, SUB MTH (s), 2, B/L , SUB MTH (s), 5, B/L ,Plantar, Heel(s), B/L Vascular DP PULSES (B): 1/4, B/L PT [...] pain on palpation, TA, T4, T5, T6, T9 , all other nails not described with characteristics as possessing mycosis are elongated, overgrown, and dystrophic ( T1, T2, T3, T7, T8 )
== END 2024-06-22 13:21 | disposition home or self-care (01) ==
LOC: HO.MAMMO 13:20
PROVIDERS: PCP Internal Medicine; Visit Provider Internal Medicine
DX: Z12.31 Encounter for screening mammogram for malignant neoplasm of breast (principal)
CPT/HCPCS: 77063; 77067

== ENCOUNTER → 2024-06-22 13:30 | Outpatient (BNV) | payer MEDICARE, SELFPAY | PROVIDERS: PCP Internal Medicine; Visit Provider Internal Medicine | DX: Z12.31 Encounter for screening mammogram for malignant neoplasm of breast (principal) | CPT/HCPCS: 77063; 77067 ==

== ENCOUNTER 2025-01-23 10:38 | Outpatient (REF) | payer MEDICARE, SELFPAY ==
--- OUTSIDE RECORDS SUMMARY | 2023-11-30 08:30 | XMS_ITS ---
Author Organization [facility] Address [address] [place] [address] Care Team Providers Care Firestop/Containment Worker Name Role Phone Rico CABELLO, Andrew Primary Care Provider Unavailabl Sage George Unavailable [phone] Encounters Encounter [facility] Date [facility] [address] [place] [id number] 11/30/2023 Sage Hedrick Plan Of Treatment No Information Progress Notes * Cecilia LIN DDOB:[birth year] (79 yo F)Acc No.[id number]:11/30/2023 Progress Note Patient: Cecilia LEON Provider: Peyton Hedrick DPM :1945 A ge:78 Y S ex:Female Date:11/30/2023 Address:[address] [place], [place] [id number] Pcp:Andrew Gómez MD Subjective: * Chief Complaints: * * Medical History: Objective: * Vitals: Assessment: Plan: * Treatment: * Images: * The named appointment provid er may or may not be the originator of this progress note, and it is not deemed complete until electronically signed by the appointment provider. Sign off status: Pending * Provider: Peyton Hedrick DPM Date: Generated for Adrianna billy/Aishwarya/eTransmitting on: 03/26/2024 01:26 PM EST
--- OUTSIDE RECORDS SUMMARY | 2025-01-23 13:27 | XMS_ITS | Patient Health Record ---
Author Organization [facility] Address [address] [facility] [place] [address] Care Team Providers Care Extraction Machine Operator Name Role Phone Andrew Gómez MD Primary Care Provider Sage Starr Unavailable [phone] Allergies Allergen (clinical drug ingredient) Drug/Non Drug Allergy documented on EMR Reaction Allergy Type Onset Date Status Seasonale Unknown Drug Allergy Active Reason For Referral No Information Medications Medication SIG (Take, Route, Frequency, Duration) Notes Start Date End Date Status Furosemide Active Flonase Active Zoloft Not-Taking Melatonin 5 MG 1 tablet in the even ing Orally Once a day; Duration: 30 day(s) Active Magnesium Active Metoprolol Succinate ER 50 MG 1 tablet Orally Once a day; Duration: 30 day(s) Active Sertraline HCl 100 MG 1 tablet Orally On ce a day; Duration: 30 day(s) Active Multivitamin Active Align Active Ammonium Lactate 12 % 1 application Externally to affected areas of dry skin to feet except for between the toes Twice a day; Duration: 30 days Active Vitamin D3 Active Famotidine 20 MG 1 tablet at bedtime as needed Orally Once a day; Duration: 30 day(s) Active PriLOSEC 20mg Not-Ta dar Claritin 10 MG 1 tablet Orally Once a day; Duration: 30 day(s) Active Calcium Not-Taking Immunizations Vaccine Route Administration Date Status Comme nts Influenza Unknown 11/09/2023 Administered COVID-19 Pfizer BioNTech Vaccine Unknown 08/28/2021 Administered [...] Problem Status W/U Status Risk Notes Problem Bilateral atherosclerosis of arteries of lower limbs (disorder) ([id number] ) Atherosclerosis of [place] artery of both lower extremities, with unspecified presence of clinical manifestation (I70.203) Active confirmed Vital Signs Blood pressure diastolic 65 mm Hg 10/10/2024 Height 5ft 4in in 10/10/2024 Blood pressure systolic 128 mm Hg 10/10/2024 Weight 185 lbs 10/10/2024 BMI 31.75 kg/m2 10/10/2024 Procedures Procedure Date Ordered Date Performed Result Body Sit e 96214-HUZDRVA NAIL, 1-5 04/04/2024 N/A 78522-FPCR SKIN LESIONS, OVER 4 04/04/2024 N/A B1203-GDVABIMV DYSTROPHIC NAILS ANY # 04/04/2024 N/A 81425-APXMOCT NAIL, 1-5 07/04/2024 N/A 79193-PRER SKIN LESIONS, OVER 4 07/04/2024 N/A N3036-DQQDCAJL DYSTROPHIC NAILS ANY # 07/04/2024 N/A 01562-UEWBKHA NAIL, 1-5 10/10/2024 N/A 58610-ALCI SKIN LESIONS, OVER 4 10/10/2024 N/A J7132-CEZPKCAP DYSTROPHIC NAILS ANY # 10/10/2024 N/A Encounters [facility] [address] 04/04/2024 Sage Hedrick Atherosclerosis of [place] artery of both lower extremities, with unspecified presence of clinical manifestation I70.203 ; Tinea unguium B35.1 ; Pain in right toe(s) M79.674 and Pain in left toe(s) M79.[address] [facility] [address] 07/04/2024 Sage Hedrick Atherosclerosis of [place] artery of both lower extremities, with unspecified presence of clinical manifestation I70.203 ; Tinea unguium B35.1 ; Pain in right toe(s) M79.674 ; Pain in left toe(s) M79.675 and Xerosis of skin L85.3 [facility] [place] [address] [address] 10/10/2024 Sage Hedrick Atherosclerosis of [place] artery of both lower extremities, with unspecified presence of clinical manifestation I70.203 ; Tinea unguium B35.1 ; Pain in right toe(s) M79.674 ; Pain in left toe(s) M79.675 and Xerosis of skin L85.3 Assessments Encounter Date Diagnosis (ICD Code) Assessment Notes Treatment Notes Treatment Clinical Notes Section Notes 04/04/2024 Tinea unguium (ICD-10 - B35.1) 04/04/2024 Atherosclerosis of [place] artery of both lower extremities, with unspecified presence of clinical manifestation (ICD-10 - I70.203) 07/04/2024 Tinea unguium (ICD-10 - B35.1) 07/04/2024 Atherosclerosis of [place] artery of both lower extremities, with unspecified presence of clinical manifestation (ICD-10 - I70.203) 10/10/2024 Tinea unguium (ICD-10 - B35.1) 10/10/2024 Atherosclerosis of [place] artery of both lower extremities, with unspecified presence of clinical manifestation (ICD-10 - I70.203) 10/10/2024 Pain in right toe(s) (ICD-10 - M79.674) 07/04/2024 Pain in right toe(s) (ICD-10 - M79.674) 04/04/2024 Pain in right toe(s) (ICD-10 - M79.674) 04/04/2024 Pain in left toe(s) (ICD-10 - M79.675) 07/04/2024 Pain in left toe(s) (ICD-10 - M79.675) 10/10/2024 Pain in left toe(s) (ICD-10 - M79.675) 10/10/2024 Xerosis of skin (ICD-10 - L85.3) 07/04/2024 Xerosis of skin (ICD-10 - L85.3) Plan Of Treatment Pending Test Test Name Order Date X ray : Foot, right 3V 03/17/2023 38341-SYXAVMK NAIL, 1-5 05/25/2023 66496-TBAKOFY NAIL, 1-5 03/17/2023 94811-MEIPGBK NAIL, 1-5 08/31/2023 20316-LSKULEA NAIL, 1-5 01/04/2024 40348-ZVNEGMA NAIL, 1-5 10/19/2010 08886-OHKKXVR NAIL, 1-5 02/15/2011 43608-POYZGUF NAIL, -5 02/17/2022 20194-RPXMQCG NAIL, -5 05/19/2022 63638-PWLIZOW NAIL, -5 08/18/2022 11359-XXDWBRO NAIL, 1-5 12/09/2022 94097-HKWHALS NAIL, 1-5 04/04/2024 68399-IITUERQ NAIL, 1-5 07/04/2024 13877-LMYCOKH NAIL, 1-5 10/10/2024 78006-Ffqk Destruction, -14 12/09/2022 66623-Gwtk Destruction, -08/18/2022 09211-Zfyp Destruction, -14 05/19/2022 10388-Ejpz Destruction, -14 08/31/2023 69189-Ffnm Destruction, -14 03/17/2023 57253-Wczr Destruction, -05/25/2023 95932-Humiuvix Plate 02/17/2022 74081-SUHE SKIN LESIONS, OVER 4 02/17/19 41826-BDXU SKIN LESIONS, OVER 4 08/19/19 76657-QEGK SKIN LESIONS, OVER 4 12/10/19 90885-CYZG SKIN LESIONS, OVER 4 05/25/19 37174-HCAB SKIN LESIONS, OVER 4 03/17/19 39123-MXHF SKIN LESIONS, OVER 4 08/31/19 97922-PEMG SKIN LESIONS, OVER 4 05/20/19 91737-GRUE SKIN LESIONS, OVER 4 01/04/20 21275-SPCO SKIN LESIONS, OVER 4 09/03/20 25 78707-JGTC SKIN LESIONS, OVER 4 07/05/19 25 62299-KIVP SKIN LESIONS, OVER 4 04/04/19 25 J6862-BCFHPFSC DYSTROPHIC NAILS ANY # W8886-NLOJOLCJ DYSTROPHIC NAILS ANY # K0002-WTDYFVGY DYSTROPHIC NAILS ANY # T0504-AAZFESZN DYSTROPHIC NAILS ANY # G8058-UZZVYHDA DYSTROPHIC NAILS ANY # I5446-GZUHPZQL DYSTROPHIC NAILS ANY # B6849-ELXHQERF DYSTROPHIC NAILS ANY # P5052-GRPWXRPY DYSTROPHIC NAILS ANY # Z3051-XHQISDGD DYSTROPHIC NAILS ANY # O5474-SYPAEOQZ DYSTROPHIC NAILS ANY # N0279-AWATMUYY DYSTROPHIC NAILS ANY # Insurance Providers Payer Name Payer Address Payer Phone Subscriber Number Group Number Insured Name Patient Relationship to Insured Coverage Start Date Coverage End Date [facility] [address] [place] [address] [id number] Cecilia Lin Self - patient is the insured 4 Medical (General) History Medical History History ICD Code reflux mumps Arthritis Anxiety back, hip, knee pain Chron's/ Colitis Cataracts chicken pox measles depression chronic sinusitis Surgical History Surgery Date(Month/Year) kidney stones cataract surgery Hospitalization History Reason Date(Month/Year) [facility] [place]- heat exhaustion 09/2022
--- OUTSIDE RECORDS SUMMARY | 2025-01-23 13:27 | XMS_ITS | Clinical Summary ---
Author Organization [facility] Address [address] [place] [phone] Phone Care Team Providers Care Copy Reader Name Role Phone Magui Martínez Primary Care Provider Allergies No known active allergies Medications cholecalciferol (VITAMIN D3) 25 MCG (1,000 unit) tablet daily. Active famotidine (PEPCID) 20 MG tablet Take 20 mg by mouth 2 (two) times a day. 2 Active fluticasone propionate (FLONASE) 50 mcg/actuation nasal spray fluticasone propionate 50 mcg/actuation nasal spray,suspension SHAKE LIQUID AND USE 1 SPRAY IN EACH NOSTRIL TWICE DAILY NEEDED Active furosemide (LASIX) 20 MG tablet Take 20 mg by mouth daily. 2 Active metoprolol succinate (TOPROL-XL) 50 MG 24 hr tablet Take 50 mg by mouth daily. 2 Active sertraline (ZOLOFT) 100 MG tablet Take 100 mg by mouth daily. 2 Active loratadine (CLARITIN) 10 mg tablet daily. Active Active Problems Problem Noted Date Diagnosed Date Localized edema 10/05/2021 Shortness of breath 10/05/2021 Social History Tobacco Use Types Packs/Day Years Used Date Smoking Tobacco: Former Cigarettes Smokeless Tobacco: Never Education Answer Date Recorded Are you interested in more education? Not on zina e 06/05/2022 Are you concerned about learning? Not on file 06/05/2022 No 06/05/2022 No 06/05/2022 Digital Access Answer Date Recorded No 07/04/2022 No 07/04/2022 No 07/04/2022 Reliable internet access at home? Not on file 07/04/2022 Device with a working camera? Not on file Comments Unknown Sex and Gender Information Value Date Recorded Sex Assigned at Not on file Legal Sex Female 2:17 PM EDT Gender Identity Not on file Sexual Orientation Not on file Last Filed Vital Signs Vital Sign Reading Time Taken Comments Blood Pressure 128/86 10/05/2021 11:06 AM EDT Pulse 66 10/05/2021 11:06 AM EDT Temperature - - Respiratory Rate - - Oxygen Saturation 97% 10/05/2021 11:06 AM EDT Inhaled Oxygen Concentration - - Weight 90.7 kg (200 lb) 10/05/2021 11:06 AM EDT Height - - Body Mass Index - - Plan of Treatment Health Maintenance Due Date Last Done Comments LIPID PANEL 1944 DEPRESSION SCREENING 1956 SMOKING Hx and SMOKELESS TOBACCO SCREENING 1957 OSTEOPOROSIS SCREENING INITI AL (ONE-TIME) 2009 ZOSTER VACCINES (2 of 3) 09/15/2011 07/21/2011 RSV VACCINE (1 - 1-dose 75+ series) 07/24/2019 Adult Td,Tdap Booster 02/08/2024 02/07/2014 INFLUENZA VACCINE (#1) 2024 , 12/01/2019, 11/03/2017 COVID-19 VACCINE (4 - 2024-2 6 season) 2024 11/02/2020, 04/03/2020, 03/13/2020 PNEUMOCOCCAL VACCINES (50+ years) Completed 02/08/2016, 02/07/2011 HEPATITIS A VACCINES Aged Out No long er eligible based on patient's age to complete this topic HIB VACCINES Aged Out No longer eligi ble based on patient's age to complete this topic MENINGOCOCCAL VACCINES (ACWY) Aged Out No longer eligible based on patient's age to complete this topic MENINGOCOCCAL VACCINES (B) Aged Out N o longer eligible based on patient's age to complete this topic Medical Devices Not on file Insurance [employer] H[employer] REPLACEMENT [employer] H[employer] REPLACEMENT [employer] HMO REPLACEMENT [employer] [place] MEDICARE HMO REPLACEMENT [address] [address] [address] MEDICARE HMO REPLACEMENT [employer] MEDIC[employer] HMO RE[place]ACEMENT [place] [address] MEDICARE HMO REPLACEMENT [employer] HMO REPLACEMENT [employer] H[employer] REPLACEMENT Care Teams Copy Reader Relationship Specialty Start Date End Date Magui Martínez PA [address] [place] [address] [place] [address] PCP - General 08/03/21 Additional Source Comments The information contained in this document represents components of the legal health record. It is not the complete legal health record.[facility]
[2025-01-23 14:32] LABS: Appearance Urine Cloudy; Glucose Urine UA Negative (Negative); PH 5.5 (5.0-9.0); Specific Gravity - Urine 1.015 (1.005-1.025); UMIC TRIGGER UACC YES
[2025-01-23 14:48] LABS: UACC Culture Trigger YES
== END 2025-01-23 10:39 | disposition home or self-care (01) ==
LOC: HO.MANLDS 10:38
PROVIDERS: Visit Provider Physician Assistant
DX: R30.0 Dysuria (principal)
CPT/HCPCS: 81001; 87086